=== PATIENT | male | born 1970 | race Caucasian/White ===

== ENCOUNTER 2016-11-01 20:52 | Emergency (ER) | payer OTHER ==
[~2016-11-01 20:52] MED LIST: ABILIFY5 MG PO; CARDURA4 MG PO; CARDURA8 MG PO; DOXAZOSIN MESYLA1 MG PO; FUROSEMIDE20 MG PO; HUMALOG KWI100 MG/ML SC; HUMALOG100 MG/ML; IBUPROFEN400 MG PO; IMODIUM A-D2 MG PO; KLOR-CON 1010 MEQ PO; LANTUS SOL100 UNITS/ SC; LASIX40 MG PO; LIPITOR20 MG PO; LOPERAMIDE HCL2 MG PO; NEURONTIN100 MG PO; NEURONTIN300 MG PO; OXYCODONE HCL E10 MG PO; OXYCODONE HCL10 MG PO; PERCOCET1 TA1 PO; PERCOCET1 TA2 PO
--- NOTE | 2016-11-01 22:18 | DIAGNOSTIC IMAGING REPORT ---
PROCEDURE: XR CHEST 1 VIEW INDICATION: CHEST PAIN TECHNIQUE: Portable AP view (2110 hours). COMPARISON: Compared to chest x-ray on 10/16/2015. FINDINGS: Allowing for suboptimal inspiration, there is volume loss at the lung bases. Lungs are otherwise clear. Heart and mediastinum are normal. Thorax is normal. IMPRESSION: 1. Allowing for suboptimal inspiration, there is volume loss at the lung bases. 2. Otherwise negative chest.
--- NOTE | 2016-11-02 00:13 | ED NURSING NOTES ---
Clinical Report - Nurses [facility] [address] [place] [address] 11/01/2016 20:51 Patient: PETE ROBLERO TRIAGE Acuity: LEVEL 2. Chief Complaint: CHEST PAIN. --21:08 Corinne Winters R.N. 21:00 11/01/16. BP: 144/67. HR: 84. RR: 19. O2 saturation: 98% on room air. Temp: 98.4 F. Pain level now: 06/08. --21:35 Corinne Winters R.N. Weight: 129.2 kg stated. Height/Length: 68 inches Per Patient. BMI: 43.3. --21:00 Corinne Winters R.N. Medications Albuterol Sulfate HFA Inhalation. Doxazosin Mesylate Oral (Tablet 4 mg) 1 tablet, q hs. Gabapentin Oral 1200mg, 3x a day. Ibuprofen Oral, PRN. Insulin, humanlin. Percocet Oral 10/325 mg, 3x a day. Potassium Chloride Oral 20 meq, 2x a day. --21:02 Corinne Winters R.N. ASA 81mg daily am . --21:02 Corinne Winters R.N. Atorvastating 80mg daily . --21:03 Corinne Winters R.N. Furosemide Oral 40 mg, 1-2 day prn ankle swelling. --21:03 Corinne Winters R.N. Isosorbide Mononitrate Oral 60mg daily . --21:04 Corinne Winters R.N. Imodium A-D Oral 2 mg, PRN. --21:05 Corinne Winters R.N. Metoprolol Tartrate Oral 25 mg, daily . --21:05 Corinne Winters R.N. Nitro-Bid Transdermal 0.4 PRN . Pantoprazole Sodium Oral 20 mg, daily. --21:06 Corinne Winters R.N. HumuLIN R Injection 60-80 in am, and sliding at night . Lantus Subcutaneous 100 am and HS . --21:07 Corinne Winters R.N. Allergies Imitrex. Tape. Vicodin. --21:00 Corinne Winters R.N. History Arrived by private vehicle. Historian: patient. Accompanied by family. Primary physician (alcira). Onset. (1400). He has had difficulty breathing and nausea. Reports experiencing sweating episodes. 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 SOCIAL HX: Light tobacco smoker (cigarette)- less than 1/2 a pack per day. No alcohol use or drug use. --21:08 Corinne Winters R.N. PROBLEMS: Ureterolithiasis. Hematuria. Syncope. Intervertebral Disc Disease. Neck Pain. Cholelithiasis. Abdominal Pain. Myofascial Strain. Neuropathy. Diarrhea. Diabetes Mellitus. Prostatitis. COPD - Chronic Obstructive Pulmonary Disease. --20:59 Corinne Winters R.N. ADDITIONAL SURGERIES: Back Surgery. Intestine surgery. Lt knee . Lt shoulder surgery. Rt hand. --20:59 Corinne Winters R.N. Interventions ID band on patient. To treatment room. --21:08 Corinne Winters R.N. PHYSICAL ASSESSMENT 20:50. To room via wheelchair. Patient gowned. GENERAL / NEURO / PSYCH: Alert. Oriented X 4. Appears in pain and anxious. RESPIRATORY: Chest wall tenderness. ( occasional cough). CVS: Pulses within normal limits. Capillary refill less than 2 seconds. GI / : Abdomen soft. EXTREMITIES: Lower extremity edema. 1+ pedal edema, pt states better than this am. SKIN: Skin is warm and dry. --21:11 Corinne Winters R.N. NURSING PROGRESS NOTES 20:50. Oxygen administered. Monitoring of patient in place. Patient gowned. Head of bed elevated. Reassurance given. Patient identifiers checked. Call light placed in reach. Side rails up. Bed placed in lowest position. Patient ready for evaluation- chart flagged. --21:09 Corinne Winters R.N. 20:55. ( IV attempt unsuccessful, but blood to lab). --21:10 Corinne Winters R.N. 21:10 11/01/16. Portable chest x-ray ordered, performed and shown to the ED physician. --21:10 Corinne Winters R.N. 21:14 11/01/2016 Site #1 started via IV in the right antecubital space with an 20g angiocath, with aseptic technique and good blood return; two attempts. Blood drawn: rainbow set. Labeled in the presence of the patient and sent to the lab. Saline lock flushed with saline. --21:24 Donnie Mike R.N. EKG time: (2100). EKG was ordered, performed by a tech and shown to the ED physician. --21:27 Berto Dahl, ANDRE Jamb Cutter 21:33 11/01/2016 Morphine IVP 4 mg given. via site #1. Allergies verified, confirmed 5 rights and sedative warning given to the patient and patient's family. IV patency established. IV site checked: no pain, redness, or swelling. IV flushed thoroughly pre- and post-medication administration. IVP given by RN. --21:33 Donnie Mike R.N. 21:33 11/01/2016 NITROGLYCERIN PASTE Topical 0.5 inch. Applied to the left chest. Allergies verified and confirmed 5 rights. --21:33 Donnie Mike R.N. 22:05 11/01/2016 Morphine IVP 4 mg given. via site #1. Allergies verified, confirmed 5 rights and sedative warning given to the patient and patient's family. IV patency established. IV site checked: no pain, redness, or swelling. IV flushed thoroughly pre- and post-medication administration. IVP given by RN. --22:20 Donnie Mike R.N. 23:12 11/01/2016 Morphine IVP 4 mg given. via site #1. Allergies verified, confirmed 5 rights and sedative warning given to the patient and patient's family. IV patency established. IV site checked: no pain, redness, or swelling. IV flushed thoroughly pre- and post-medication administration. IVP given by RN. --23:27 Donnie Mike R.N. Patient ID band checked for patient name and birthdate: patient confirmed. Blood samples drawn from the left hand with Vacutainer and 21g butterfly by tech per protocol ; labeled in presence of the patient and sent to lab: red and green top; cardiac enzymes (2nd set). --23:33 Berto Dahl, ER Jamb Cutter. DISPOSITION / DISCHARGE Departure time: 29. Condition at departure: improved. No learning barriers present. Discharge instructions provided and reviewed with the patient, spouse and family. Reviewed warnings. Reviewed medication(s). Treatments reviewed. Activity restrictions reviewed. Patient, spouse and family verbalized understanding. Written instructions provided in Lithuanian. The patient was discharged by the physician. He was discharged home and accompanied by spouse and family. He left the Emergency Department ambulatory and via private vehicle. Spouse driving. --00:52 Donnie Mike R.N. 00:51 11/02/16. BP: 138/69. HR: 77. RR: 16. O2 saturation: 98%. Temp: 98 F. Pain level now 10. --00:52 Donnie Mike R.N. Locked/Released at 11/02/2016 0:52 by Donnie Mike R.N.
--- NOTE | 2016-11-02 00:13 | ED ORDER SUMMARY ---
..... Patient: PETE ROBLERO OrderSheet [facility] VisitID: [id number] [place] [address] 46y, M Registration Date/Time: 11/01/2016 ORDER SHEET Weight: 129.2 kg (stated) Allergies: Imitrex, Tape, Vicodin GENERAL ORDERS: Chest 1V Urgent (21:11/01/2016 Anika Colon) (Ack 21:05 CHagerty ER Flame Burner) (21:22 Leon R.N.) Health Information Tech (Continuous) (CP) (21:11/01/2016 Anika Colon) (Ack 21:05 CHagbonnie ER Flame Burner) (21:22 Leon R.N.) CBC w Diff Urgent (21:11/01/2016 Anika Colon) (Ack 21:05 CHagbonnie ER Flame Burner) (21:22 Leon R.N.) CMP Urgent (21:11/01/2016 Anika Colon) (Ack 21:05 CHagerty ER Flame Burner) (21:22 Leon R.N.) PT with INR Urgent (21:11/01/2016 Anika Colon) (Ack 21:05 CHagerty ER Flame Burner) (21:22 Leon R.N.) UA-Culture if indicated Urgent (21:02 11/01/2016 Anika Colon) (Ack 21:05 CHagerty ER Flame Burner) (22:24 Leon R.N.) Urine Drug Screen Urgent (21:02 11/01/2016 Anika Colon) (Ack 21:05 CHagerty ER Flame Burner) (22:24 Leon R.N.) Troponin-I Urgent (21:11/01/2016 Anika Colon) (Ack 21:05 CHagerty ER Flame Burner) (21:22 Leon R.N.) EKG - ER Stat (21:11/01/2016 Anika Colon) (21:05 CHagerty ER Flame Burner) Pulse oximeter (21:11/01/2016 Anika Colon) (Ack 21:05 CHagerty ER Flame Burner) (21:22 Leon R.N.) Consult - Casino Floorperson (patient's on site wastewater systems technician or covering doctor) (22:20 11/01/2016 Anika Colon) (Ack 22:21 CHagerty ER Flame Burner) (22:45 CHagerty ER Flame Burner) Troponin-I (draw 2 hours after first trop) Urgent (22:33 11/01/2016 Anika Colon) (22:39 Leon RAlejaNAleja) Lipase Urgent (22:39 11/01/2016 Anika Colon) (22:39 Leon R.NAleja) BNP Urgent (22:39 11/01/2016 Anika Colon) (22:39 Leon Vidal) MEDICATION ORDERS: Aspirin PO 325 mg (once now if he did not have full dose) (21:02 11/01/2016 Anika Colon) (Cancelled: patient already took 21:21 Anika Colon) NitroGLYCERIN Paste Topical 0.5 in. (NOW, to CW) (21:21 11/01/2016 Anika Colon) (21:33 Leon R.NAleja) IV FLUIDS: IV Saline Lock (21:02 11/01/2016 Anika Colon) (21:24 Leon R.N.) Morphine IV 4 mg (HIGH ALERT MEDICATION, NOW) (21:21 11/01/2016 Anika Colon) (21:33 Leon R.N.) Morphine IV 4 mg (HIGH ALERT MEDICATION, NOW) (22:13 11/01/2016 Anika Colon) (22:20 Leon R.N.) Morphine IV 4 mg (as needed for pain > 5/10 Q1H) (23:06 11/01/2016 Anika Colon) (23:27 Leon R.N.) ORDER SHEET NOTES: [Electronically signed by Donnie Mike R.N. (00:52 11/02/2016)] [Electronically signed by Morales Spears Dr. (07:25 11/02/2016)] [Electronically locked/signed by Donnie Mike R.N. (00:52 11/02/2016)]
--- NOTE | 2016-11-02 00:13 | ED CLINICAL REPORT ---
Clinical Report - Physicians/Mid Levels [facility] [address] [place] [address] 11/01/2016 20:51 Patient: PETE ROBLERO Arrived- By private vehicle. Historian- patient. HISTORY OF PRESENT ILLNESS Chief Complaint: CHEST PAIN. It is described as pressure and it is described as located in the central chest area and radiating to the right shoulder. This started Past few days and is still present and worsening. It was abrupt in onset and has been constant but is not gone now. Onset during rest. At its maximum, severity described as moderate. When seen in the E.D., severity described as moderate. Modifying factors- worsened by exertion. (better with nitroglycerin.). No nausea, vomiting, difficulty breathing or diaphoresis. No additional chest pain. Similar symptoms previously: Many times. Recent medical care: Not recently seen/assessed. REVIEW OF SYSTEMS No fever, pedal edema or skin rash. All systems otherwise negative, except as recorded above. PAST HISTORY See nurses notes. Medications: HumuLIN R Injection 60-80 in am, and sliding at night . Lantus Subcutaneous 100 am and HS . Nitro-Bid Transdermal 0.4 PRN . Pantoprazole Sodium Oral 20 mg, daily. Metoprolol Tartrate Oral 25 mg, daily . Imodium A-D Oral 2 mg, PRN. Isosorbide Mononitrate Oral 60mg daily . Furosemide Oral 40 mg, 1-2 day prn ankle swelling. Atorvastating 80mg daily . ASA 81mg daily am . Albuterol Sulfate HFA Inhalation. Doxazosin Mesylate Oral (Tablet 4 mg) 1 tablet, q hs. Gabapentin Oral 1200mg, 3x a day. Ibuprofen Oral, PRN. Insulin, humanlin. Percocet Oral 10/325 mg, 3x a day. Potassium Chloride Oral 20 meq, 2x a day. Allergies: Imitrex. Tape. Vicodin. SOCIAL HISTORY Smoker- current status unknown. Alcohol use. No drug use. Is a local resident. FAMILY HISTORY History of heart disease. ADDITIONAL NOTES The nursing notes have been reviewed. PHYSICAL EXAM Vital Signs: 11/01/2016 21:00 BP: 144/67. HR: 84. RR: 19. O2 saturation: 98%. Temp: 98.4 F. Pain level now: 9/10. Blood pressure normal. Oxygen saturation normal. Appearance: Alert. Oriented X3. No acute distress. Eyes: Pupils equal, round and reactive to light. Eyes normal inspection. ENT: Ears normal. Nose normal. Pharynx normal. Neck: Normal inspection. Neck supple. CVS: Normal heart rate and rhythm. Heart sounds normal. Pulses normal. No decreased pulses. Respiratory: No respiratory distress. Breath sounds normal. Chest nontender. No rales, rhonchi or wheezes. Abdomen: Soft and nontender. Bowel sounds normal. No mass. (small well healed remote abdominal surgical scars.). Back: Normal external inspection. Skin: Skin warm and dry. Normal skin color. No rash. Normal skin turgor. Extremities: Extremities exhibit normal ROM. No lower extremity edema. Neuro: Oriented X 3. No motor deficit. No sensory deficit. LABS, X-RAYS, AND EKG EKG: No acute process. No acute ischemia. Normal EKG. Normal sinus rhythm. Rate: 88. Normal P waves. Normal ARABELLA. Normal QRS complex. Normal axis. Normal ST and T waves, QT and QTc. The study has been interpreted contemporaneously. The study has been independently viewed by me. The EKG appears to be a good tracing. Chest X-ray: No acute disease. Normal lung markings present. Normal heart size. No infiltrate. (no apical capping. No widened mediastinum. Negative chest). Views: PA. The X-rays were independently viewed by me and interpreted contemporaneously by me. A comparison with prior films reveals that the findings are unchanged. Laboratory Tests: UA-Culture if indicated: (ALBA: 11/01/2016 22:20) ( MsgRcvd 11/01/2016 22:39) Final results Test Result Flag Units (Reference) URINE COLOR YELLOW URINE APPEARANCE CLEAR URINE GLUCOSE 1+ (NEGATIVE) URINE BILIRUBIN NEGATIVE (NEGATIVE) URINE KETONE NEGATIVE (NEGATIVE) URINE SPECIFIC GRAVITY 1.025 (1.010-1.030) URINE PH 6.0 (5.0-8.0) URINE PROTEIN NEGATIVE (NEGATIVE) URINE UROBILINOGEN 0.2 EU/dL (0.2-1.0) URINE NITRITE NEGATIVE (NEGATIVE) URINE BLOOD NEGATIVE (NEGATIVE) URINE LEUK ESTERASE NEGATIVE (NEGATIVE) URINE RBC 0-1 rbc/hpf (0-1) URINE WBC 0-1 wbc/hpf (0-1) URINE EPITHELIAL CELLS 0-1 EPI/hpf (0-5) URINE BACTERIA NONE SEEN (NONE SEEN) URINE COMMENT CULT NOT INDICATED URINE CULTURES ARE SET-UP BASED ON THE FOLLOWING CRITERIA:POSITIVE NITRITEPOSITIVE LEUKOCYTE ESTERASEGREATER THAN 10 WHITE BLOOD CELLSMODERATE (2+) OR GREATER BACTERIA CBC w Diff: (ALBA: 11/01/2016 21:05) ( MsgRcvd 11/01/2016 21:42) Final results Test Result Flag Units (Reference) WHITE BLOOD COUNT 9.6 K/uL (4.5-11.5) RED BLOOD COUNT 4.16 L M/uL (4.50-5.90) HEMOGLOBIN 12.6 L gm/dL (13.5-17.5) HEMATOCRIT 36.9 L % (41.0-53.0) MEAN CELL VOLUME 89 fL (80-100) MEAN CORPUSCULAR HGB 30 pg (26-34) MEAN CORPUSCULAR HGB CONC 34 g/dL (31-37) RED CELL DISTRIBUTION WIDTH 13.3 % (11.6-14.8) PLATELET COUNT 211 K/uL (150-400) NEUTROPHIL % 61.7 % (50-75) LYMPH % 30.1 % (25-40) MONO % 5.4 % (3-14) EOSINOPHIL % 1.5 % (0-4) BASOPHIL % 1.3 % (0-2) PT with INR: (ALBA: 11/01/2016 21:05) ( MsgRcvd 11/01/2016 21:26) Final results Test Result Flag Units (Reference) INR 0.9 (0.8-1.2) Low Intensity Therapy: INR 1.5-2.0 PT range 18.5-23.1Mod.Intensity Therapy: INR 2.0-3.0 PT range 23.1-31.5High Intensity Therapy: INR 2.5-3.5 PT range 27.4-35.5High Intensity Therapy 2: INR 3.0-4.0 PT range 31.5-39.3 BNP: (ALBA: 11/01/2016 21:05) ( [facility] 11/01/2016 23:15) Final results Test Result Flag Units (Reference) B-TYPE NATRIURETIC PEPTIDE 29.6 pg/ml (5-100) Lipase: (ALBA: 11/01/2016 21:05) ( [facility] 11/01/2016 23:29) Final results Test Result Flag Units (Reference) LIPASE 46 L U/L (73-393) Troponin-I: (ALBA: 11/01/2016 23:34) ( [facility] 11/01/2016 23:59) Final results Test Result Flag Units (Reference) TROPONIN I <0.05 L ng/mL (0.00-1.5) TROPONIN REFERENCE RANGE:<0.1 NEGATIVE0.1-1.5 INDETERMINANT>1.5 POSITIVE Urine Drug Screen: (ALBA: 11/01/2016 22:20) ( [facility] 11/01/2016 22:49) Final results Test Result Flag Units (Reference) AMPHETAMINE/METHAMPHETAMINE NEGATIVE (NEGATIVE) BARBITURATE NEGATIVE (NEGATIVE) BENZODIAZEPINE NEGATIVE (NEGATIVE) CANNABINOID NEGATIVE (NEGATIVE) COCAINE NEGATIVE (NEGATIVE) ECSTASY NEGATIVE (NEGATIVE) METHADONE NEGATIVE (NEGATIVE) OPIATE POSITIVE H (NEGATIVE) The urine drug screen is a qualitative screening test fordrug overdose and abuse. All screen results should beconsidered as presumptive.Drugs screened for are as follows:BenzodiazepinesCocaineAmphetamines/MetamphetaminesTHC (Tetrahydrocannabinol)OpiatesBarbituratesEcstasyMethadonePositive results are unconfirmed. For confirmation, notifythe lab for the specimen to be sent to the reference lab.All confirmations must be performed by a differentmethodology.The ingestion of natural herbal and plant productscontaining Ephedra/Ephedra metabolites can produce in urineone or more substances capable of cross reacting withamphetamine/methamphetamine immunoassays. These testsprovide a preliminary result only. A more specificalternative chemical method must be used to obtain aconfirmed analytical result. CMP: (ALBA: 11/01/2016 21:05) ( MsgRcvd 11/01/2016 22:11) Final results Test Result Flag Units (Reference) GLUCOSE 273 H mg/dL (70-110) BUN 20 H mg/dL (7-18) CREATININE 1.1 mg/dL (0.6-1.3) Estimated GFR >60 mL/min Estimated GFR- >60 mL/min Note: Persistent reduction over 3 months in eGFR<60 mL/min/1.73 m2 defines CKD. Patients with eGFR values>=60 mL/min/1.73 m2 may also have CKD if evidence ofpersistent proteinuria. Additional information may be foundat www.kidney.org. SODIUM 142 mmol/L (136-145) POTASSIUM 3.5 mmol/L (3.5-5.1) CHLORIDE 105 mmol/L (98-107) CARBON DIOXIDE 23 mmol/L (21-32) CALCIUM 8.7 mg/dL (8.5-10.1) TOTAL PROTEIN 7.7 g/dL (6.4-8.2) ALBUMIN 3.5 g/dL (3.3-5.0) BILIRUBIN, TOTAL 0.2 mg/dL (0.0-1.0) ALKALINE PHOSPHATASE 103 U/L (46-116) AST (SGOT) 17 U/L (15-37) ALT (SGPT) 26 U/L (12-78) TROPONIN I <0.05 ng/mL (0.00-1.5) TROPONIN REFERENCE RANGE:<0.1 NEGATIVE0.1-1.5 INDETERMINANT>1.5 POSITIVE . PROGRESS AND PROCEDURES Course of Care: The patient is a 46 yo male with hx of extensive cardiac history. Records requested from [place]. Patient resting in bed in no acute distress. Work up ordered for evaluation of AMI. Patient currently PERC negative. Do not feel further work up for PE needed at this time. Patient is agreeable to treatment plan. EKGs been ordered from triage. Patient's first troponin came back and was negative. We will consult cardiology in regards to patient's presentation here in the emergency department. Because of his extensive history, we will try to contact his vehicle safety inspector. Patient is placed on for cardiology. We were able to speak the covering doctor for the patient's vehicle safety inspector. Spoke with Dr. Alejo. Spoke with Dr. Jorgensen. Patient with negative stress test August 2016 and normal cath in May 2016. Also had echo with no valvular disease or evidence of heart failure. Has appointment on 11/14/2016. Internal Affairs Investigator recommended to have a delta troponin drawn as well as a BNP. At this time if the workup is negative, patient can follow-up as an outpatient. Patient with recent studies for cardiac disease were negative.. Patient with a negative stress test and negative cardiac catheter in less than a year. With these normal studies, patient is at low risk for acute myocardial infarction. second troponin and BNP and noted to be negative. Discussed with patient workup, diagnosis, home care, follow-up, and return precautions. All questions answered. The patient expressed understanding of these instructions and was agreeable to them. Consult obtained from cardiology. Disposition: Discharged. Condition: good. CLINICAL IMPRESSION Chest pain characterized as "discomfort" .12 lead EKG performed. 11/01/2016 21:00 BP: 144/67. HR: 84. RR: 19. O2 saturation: 98%. Temp: 98.4 F. Pain level now: 9/10. Blood pressure normal. Oxygen saturation normal. INSTRUCTIONS Warnings: GENERAL WARNINGS: Return or contact your physician immediately if your condition worsens or changes unexpectedly, if not improving as expected, or if other problems arise. SPECIFICALLY, return if you develop chest, neck, jaw, shoulder, arm, or back pain, difficulty breathing, a fluttering sensation in your chest, lightheadedness, fainting, excessive fatigue, or sudden sweating. Your Current Medications: CONTINUE TAKING THE FOLLOWING MEDICATIONS: Albuterol Sulfate HFA Inhalation. ASA 81mg daily am *. Atorvastating 80mg daily *. Doxazosin Mesylate Oral : Tablet 4 mg, 1 tablet q hs. Furosemide Oral : 40 mg 1-2 day prn ankle swelling. Gabapentin Oral : 1200mg 3x a day. HumuLIN R Injection : 60-80 in am, and sliding at night. Ibuprofen Oral : PRN. Imodium A-D Oral : 2 mg PRN. Insulin, humanlin*. Isosorbide Mononitrate Oral : 60mg daily. Lantus Subcutaneous : 100 am and HS. Metoprolol Tartrate Oral : 25 mg daily. Nitro-Bid Transdermal : 0.4 PRN. Pantoprazole Sodium Oral : 20 mg daily. Percocet Oral : 10/325 mg 3x a day. Potassium Chloride Oral : 20 meq 2x a day. Prescription Medications: Nitrostat 0.4 mg: dissolve 1 tab under tongue every 15 minutes as needed for chest pain. Dispense one (1) bottle. No refills. Substitution is permissible. (Take as previously directed) Follow-up: Return to the emergency department as needed. Follow up with a specialist your vehicle safety inspector as scheduled. Reason for referral: recheck today's concerns. you have an appointment on 11/14/2016. Summary of care provided to patient and family via paper. Follow up with your doctor in three days. Reason for referral: recheck today's concerns. Summary of care provided to patient and family via paper. Screening today revealed the patient's blood pressure to be in the normal range. The patient should follow up with a primary care provider for blood pressure management. Understanding of the discharge instructions verbalized by patient. (Electronically signed by Morales Spears Dr. 11/02/2016 7:25)
--- NOTE | 2016-11-02 00:13 | ED ORDER SUMMARY ---
..... Patient: PETE ROBLERO OrderSheet [facility] VisitID: [id number] [place] [address] 46y, M Registration Date/Time: 11/01/2016 ORDER SHEET Weight: 129.2 kg (stated) Allergies: Imitrex, Tape, Vicodin GENERAL ORDERS: Chest 1V Urgent (21:11/01/2016 Anika Colon) (Ack 21:05 CHagerty ER Diaper Folder) (21:22 Leon R.N.) Utilization Manager (Continuous) (CP) (21:11/01/2016 Anika Colon) (Ack 21:05 CHagbonnie ER Diaper Folder) (21:22 Leon R.N.) CBC w Diff Urgent (21:11/01/2016 Anika Colon) (Ack 21:05 CHagbonnie ER Diaper Folder) (21:22 Leon R.N.) CMP Urgent (21:11/01/2016 Anika Colon) (Ack 21:05 CHagerty ER Diaper Folder) (21:22 Leon R.N.) PT with INR Urgent (21:11/01/2016 Anika Colon) (Ack 21:05 CHagerty ER Diaper Folder) (21:22 Leon R.N.) UA-Culture if indicated Urgent (21:02 11/01/2016 Anika Colon) (Ack 21:05 CHagerty ER Diaper Folder) (22:24 Leon R.N.) Urine Drug Screen Urgent (21:02 11/01/2016 Anika Colon) (Ack 21:05 CHagerty ER Diaper Folder) (22:24 Leon R.N.) Troponin-I Urgent (21:11/01/2016 Anika Colon) (Ack 21:05 CHagerty ER Diaper Folder) (21:22 Leon R.N.) EKG - ER Stat (21:11/01/2016 Anika Colon) (21:05 CHagerty ER Diaper Folder) Pulse oximeter (21:11/01/2016 Anika Colon) (Ack 21:05 CHagerty ER Diaper Folder) (21:22 Leon R.N.) Consult - Media Planner / Buyer (patient's mammographer or covering doctor) (22:20 11/01/2016 Anika Colon) (Ack 22:21 CHagerty ER Diaper Folder) (22:45 CHagerty ER Diaper Folder) Troponin-I (draw 2 hours after first trop) Urgent (22:33 11/01/2016 Anika Colon) (22:39 Leon RAlejaNAleja) Lipase Urgent (22:39 11/01/2016 Anika Colon) (22:39 Leon R.NAleja) BNP Urgent (22:39 11/01/2016 Anika Colon) (22:39 Leon Vidal) MEDICATION ORDERS: Aspirin PO 325 mg (once now if he did not have full dose) (21:02 11/01/2016 Anika Colon) (Cancelled: patient already took 21:21 Anika Colon) NitroGLYCERIN Paste Topical 0.5 in. (NOW, to CW) (21:21 11/01/2016 Anika Colon) (21:33 Leon R.NAleja) IV FLUIDS: IV Saline Lock (21:02 11/01/2016 Anika Colon) (21:24 Leon R.N.) Morphine IV 4 mg (HIGH ALERT MEDICATION, NOW) (21:21 11/01/2016 Anika Colon) (21:33 Leon R.N.) Morphine IV 4 mg (HIGH ALERT MEDICATION, NOW) (22:13 11/01/2016 Anika Colon) (22:20 Leon R.N.) Morphine IV 4 mg (as needed for pain > 5/10 Q1H) (23:06 11/01/2016 Anika Colon) (23:27 Leon R.N.) ORDER SHEET NOTES: [Electronically signed by Donnie Mike R.N. (00:52 11/02/2016)] [Electronically signed by Morales Spears Dr. (07:25 11/02/2016)] [Electronically locked/signed by Donnie Mike R.N. (00:52 11/02/2016)]
--- NOTE | 2016-11-02 07:25 | ED DISCHARGE INSTRUCTIONS ---
Patient: PETE ROBLERO General Instructions [facility] VisitID: [id number] [place] [address] 46y, M Registration Date/Time: 11/01/2016 Chest pain characterized as "discomfort" .12 lead EKG performed. 11/01/2016 21:00 BP: 144/67. HR: 84. RR: 19. O2 saturation: 98%. Temp: 98.4 F. Pain level now: 06/08. Blood pressure normal. Oxygen saturation normal. INSTRUCTIONS Warnings: GENERAL WARNINGS: Return or contact your physician immediately if your condition worsens or changes unexpectedly, if not improving as expected, or if other problems arise. SPECIFICALLY, return if you develop chest, neck, jaw, shoulder, arm, or back pain, difficulty breathing, a fluttering sensation in your chest, lightheadedness, fainting, excessive fatigue, or sudden sweating. Your Current Medications: CONTINUE TAKING THE FOLLOWING MEDICATIONS: Albuterol Sulfate HFA Inhalation. ASA 81mg daily am *. Atorvastating 80mg daily *. Doxazosin Mesylate Oral : Tablet 4 mg, 1 tablet q hs. Furosemide Oral : 40 mg 1-2 day prn ankle swelling. Gabapentin Oral : 1200mg 3x a day. HumuLIN R Injection : 60-80 in am, and sliding at night. Ibuprofen Oral : PRN. Imodium A-D Oral : 2 mg PRN. Insulin, humanlin*. Isosorbide Mononitrate Oral : 60mg daily. Lantus Subcutaneous : 100 am and HS. Metoprolol Tartrate Oral : 25 mg daily. Nitro-Bid Transdermal : 0.4 PRN. Pantoprazole Sodium Oral : 20 mg daily. Percocet Oral : 10/325 mg 3x a day. Potassium Chloride Oral : 20 meq 2x a day. Prescription Medications: Nitrostat 0.4 mg: dissolve 1 tab under tongue every 15 minutes as needed for chest pain. Dispense one (1) bottle. No refills. Substitution is permissible. (Take as previously directed) Follow-up: Return to the emergency department as needed. 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 Reason for referral: recheck today's concerns. you have an appointment on 11/14/2016. Summary of care provided to patient and family via paper. Follow up with your doctor in three days. Reason for referral: recheck today's concerns. Summary of care provided to patient and family via paper. Screening today revealed the patient's blood pressure to be in the normal range. The patient should follow up with a primary care provider for blood pressure management. Understanding of the discharge instructions verbalized by patient. ADDITIONAL INFORMATION Chest Pain, Uncertain Cause Chest pain can happen for a number of reasons. Sometimes the cause can not be determined. If yourcondition does not seem serious, and your pain does not appear to be coming from your heart, your doctor may recommend watching it closely. Sometimes the signs of a serious problem take more time to appear. Therefore, watch for the warning signs listed below. Home care After your visit, follow these recommendations: Rest today and avoid strenuous activity. Take any prescribed medicine as directed. Follow-up care Follow up with your doctor or this facility as instructed or if you do not start to feel better within 24 hours. Call 911 Get immediate medical attention if any of the following occur: A change in the type of pain: if it feels different, becomes more severe, lasts longer, or begins to spread into your shoulder, arm, neck, jaw or back Shortness of breath or increased pain with breathing Weakness, dizziness, or fainting Rapid heart beat Get prompt medical attention Call your doctor right away if any of the following occur: Cough with dark colored sputum (phlegm) or blood Fever of 100.4F(38C) or higher, or as directed by your health care provider Swelling, pain or redness in one leg Nitroglycerin Sublingual/Translingual spray What is this medicine? NITROGLYCERIN (shayne troe GLI ser in) is a type of vasodilator. It relaxes blood vessels, increasing the blood and oxygen supply to your heart. This medicine is used to prevent or relieve chest pain caused by angina. How should I use this medicine? This medicine is only for use in the mouth. Use at the first sign of an attack. You can also use this medicine 5 to 10 minutes before an event likely to produce chest pain. Follow the directions on the prescription label. Do not shake the container. Remove the plastic cover. Before using this medicine for the first time, you must prime the bottle by spraying the pump 5 times into the air away from yourself. If this medicine has not been used for 6 weeks, you must reprime the bottle by spraying once into the air away from yourself. Hold the container upright and spray either onto or underneath the tongue. Do not breathe in the spray. After each spray, close your mouth but do not swallow or rinse. Your symptoms should improve in 1 to 5 minutes. You can repeat the dose every 5 minutes for up to three doses. If you do not feel better after 1 dose, contact your doctor or health residential care facility manager immediately or have someone take you straight to an emergency room. Do not take your medicine more often than directed. If you take this medicine often to relieve symptoms of angina, your doctor or health residential care facility manager may provide you with different instructions to manage your symptoms. If symptoms do not go away after following these instructions, it is important to call 9-1-1 immediately. Do not take more than 3 doses over 15 minutes. Talk to your improvement intern regarding the use of this medicine in children. Special care may be needed. What side effects may I notice from receiving this medicine? Side effects that you should report to your doctor or health residential care facility manager as soon as possible: blurred vision dry mouth skin rash sweating the feeling of extreme pressure in the head unusually weak or tired Side effects that usually do not require medical attention (report to your doctor or health residential care facility manager if they continue or are bothersome): flushing of the face or neck headache irregular heartbeat, palpitations nausea, vomiting What may interact with this medicine? Do not take this medicine with any of the following medications: certain migraine medicines like ergotamine and dihydroergotamine (DHE) medicines used to treat erectile dysfunction like sildenafil, tadalafil, and vardenafil This medicine may also interact with the following medications: medicines for high blood pressure What if I miss a dose? This does not apply. This medicine is only used as needed. Where should I keep my medicine? Keep out of the reach of children. Store at room temperature between 15 and 30 degrees C (59 and 86 degrees F). Do not spray near flames. Do not forcefully open or burn the container. Throw away any unused medicine after the expiration date. What should I tell my health care provider before I take this medicine? They need to know if you have any of these conditions: liver disease recent heart attack an unusual or allergic reaction to nitroglycerin, other medicines, foods, dyes, or preservatives or trying to get breast-feeding What should I watch for while using this medicine? Tell your doctor or health residential care facility manager if you feel your medicine is no longer working. Keep this medicine with you at all times. Sit or lie down when you take your medicine to prevent falling if you feel dizzy or faint after using it. Try to remain calm. This will help you to feel better faster. If you feel dizzy, take several deep breaths and lie down with your feet propped up, or bend forward with your head resting between your knees. You may get drowsy or dizzy. Do not drive, use machinery, or do anything that needs mental alertness until you know how this drug affects you. Do not stand or sit up quickly, especially if you are an older patient. This reduces the risk of dizzy or fainting spells. Alcohol can make you more drowsy and dizzy. Avoid alcoholic drinks. Do not treat yourself for coughs, colds, or pain while you are taking this medicine without asking your doctor or health residential care facility manager for advice. Some ingredients may increase your blood pressure. You have been given the following additional information: Chest Pain, Uncertain Cause Nitroglycerin Sublingual/Translingual spray (Electronically signed by Morales Spears Dr. 11/02/2016 7:25)
--- NOTE | 2016-11-02 07:25 | ED DISCHARGE INSTRUCTIONS ---
Patient: PETE ROBLERO General Instructions [facility] VisitID: [id number] [place] [address] 46y, M Registration Date/Time: 11/01/2016 Chest pain characterized as "discomfort" .12 lead EKG performed. 11/01/2016 21:00 BP: 144/67. HR: 84. RR: 19. O2 saturation: 98%. Temp: 98.4 F. Pain level now: 06/08. Blood pressure normal. Oxygen saturation normal. INSTRUCTIONS Warnings: GENERAL WARNINGS: Return or contact your physician immediately if your condition worsens or changes unexpectedly, if not improving as expected, or if other problems arise. SPECIFICALLY, return if you develop chest, neck, jaw, shoulder, arm, or back pain, difficulty breathing, a fluttering sensation in your chest, lightheadedness, fainting, excessive fatigue, or sudden sweating. Your Current Medications: CONTINUE TAKING THE FOLLOWING MEDICATIONS: Albuterol Sulfate HFA Inhalation. ASA 81mg daily am *. Atorvastating 80mg daily *. Doxazosin Mesylate Oral : Tablet 4 mg, 1 tablet q hs. Furosemide Oral : 40 mg 1-2 day prn ankle swelling. Gabapentin Oral : 1200mg 3x a day. HumuLIN R Injection : 60-80 in am, and sliding at night. Ibuprofen Oral : PRN. Imodium A-D Oral : 2 mg PRN. Insulin, humanlin*. Isosorbide Mononitrate Oral : 60mg daily. Lantus Subcutaneous : 100 am and HS. Metoprolol Tartrate Oral : 25 mg daily. Nitro-Bid Transdermal : 0.4 PRN. Pantoprazole Sodium Oral : 20 mg daily. Percocet Oral : 10/325 mg 3x a day. Potassium Chloride Oral : 20 meq 2x a day. Prescription Medications: Nitrostat 0.4 mg: dissolve 1 tab under tongue every 15 minutes as needed for chest pain. Dispense one (1) bottle. No refills. Substitution is permissible. (Take as previously directed) Follow-up: Return to the emergency department as needed. 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 Reason for referral: recheck today's concerns. you have an appointment on 11/14/2016. Summary of care provided to patient and family via paper. Follow up with your doctor in three days. Reason for referral: recheck today's concerns. Summary of care provided to patient and family via paper. Screening today revealed the patient's blood pressure to be in the normal range. The patient should follow up with a primary care provider for blood pressure management. Understanding of the discharge instructions verbalized by patient. ADDITIONAL INFORMATION Chest Pain, Uncertain Cause Chest pain can happen for a number of reasons. Sometimes the cause can not be determined. If yourcondition does not seem serious, and your pain does not appear to be coming from your heart, your doctor may recommend watching it closely. Sometimes the signs of a serious problem take more time to appear. Therefore, watch for the warning signs listed below. Home care After your visit, follow these recommendations: Rest today and avoid strenuous activity. Take any prescribed medicine as directed. Follow-up care Follow up with your doctor or this facility as instructed or if you do not start to feel better within 24 hours. Call 911 Get immediate medical attention if any of the following occur: A change in the type of pain: if it feels different, becomes more severe, lasts longer, or begins to spread into your shoulder, arm, neck, jaw or back Shortness of breath or increased pain with breathing Weakness, dizziness, or fainting Rapid heart beat Get prompt medical attention Call your doctor right away if any of the following occur: Cough with dark colored sputum (phlegm) or blood Fever of 100.4F(38C) or higher, or as directed by your health care provider Swelling, pain or redness in one leg Nitroglycerin Sublingual/Translingual spray What is this medicine? NITROGLYCERIN (shayne troe GLI ser in) is a type of vasodilator. It relaxes blood vessels, increasing the blood and oxygen supply to your heart. This medicine is used to prevent or relieve chest pain caused by angina. How should I use this medicine? This medicine is only for use in the mouth. Use at the first sign of an attack. You can also use this medicine 5 to 10 minutes before an event likely to produce chest pain. Follow the directions on the prescription label. Do not shake the container. Remove the plastic cover. Before using this medicine for the first time, you must prime the bottle by spraying the pump 5 times into the air away from yourself. If this medicine has not been used for 6 weeks, you must reprime the bottle by spraying once into the air away from yourself. Hold the container upright and spray either onto or underneath the tongue. Do not breathe in the spray. After each spray, close your mouth but do not swallow or rinse. Your symptoms should improve in 1 to 5 minutes. You can repeat the dose every 5 minutes for up to three doses. If you do not feel better after 1 dose, contact your doctor or health critical care rn immediately or have someone take you straight to an emergency room. Do not take your medicine more often than directed. If you take this medicine often to relieve symptoms of angina, your doctor or health critical care rn may provide you with different instructions to manage your symptoms. If symptoms do not go away after following these instructions, it is important to call 9-1-1 immediately. Do not take more than 3 doses over 15 minutes. Talk to your furniture mover helper regarding the use of this medicine in children. Special care may be needed. What side effects may I notice from receiving this medicine? Side effects that you should report to your doctor or health critical care rn as soon as possible: blurred vision dry mouth skin rash sweating the feeling of extreme pressure in the head unusually weak or tired Side effects that usually do not require medical attention (report to your doctor or health critical care rn if they continue or are bothersome): flushing of the face or neck headache irregular heartbeat, palpitations nausea, vomiting What may interact with this medicine? Do not take this medicine with any of the following medications: certain migraine medicines like ergotamine and dihydroergotamine (DHE) medicines used to treat erectile dysfunction like sildenafil, tadalafil, and vardenafil This medicine may also interact with the following medications: medicines for high blood pressure What if I miss a dose? This does not apply. This medicine is only used as needed. Where should I keep my medicine? Keep out of the reach of children. Store at room temperature between 15 and 30 degrees C (59 and 86 degrees F). Do not spray near flames. Do not forcefully open or burn the container. Throw away any unused medicine after the expiration date. What should I tell my health care provider before I take this medicine? They need to know if you have any of these conditions: liver disease recent heart attack an unusual or allergic reaction to nitroglycerin, other medicines, foods, dyes, or preservatives or trying to get breast-feeding What should I watch for while using this medicine? Tell your doctor or health critical care rn if you feel your medicine is no longer working. Keep this medicine with you at all times. Sit or lie down when you take your medicine to prevent falling if you feel dizzy or faint after using it. Try to remain calm. This will help you to feel better faster. If you feel dizzy, take several deep breaths and lie down with your feet propped up, or bend forward with your head resting between your knees. You may get drowsy or dizzy. Do not drive, use machinery, or do anything that needs mental alertness until you know how this drug affects you. Do not stand or sit up quickly, especially if you are an older patient. This reduces the risk of dizzy or fainting spells. Alcohol can make you more drowsy and dizzy. Avoid alcoholic drinks. Do not treat yourself for coughs, colds, or pain while you are taking this medicine without asking your doctor or health critical care rn for advice. Some ingredients may increase your blood pressure. You have been given the following additional information: Chest Pain, Uncertain Cause Nitroglycerin Sublingual/Translingual spray (Electronically signed by Morales Spears Dr. 11/02/2016 7:25)
--- NOTE | 2016-11-02 07:25 | ED MAR SUMMARY ---
..... Medication Administration Record [facility] [address] [place] [place] [address] Patient: PETE ROBLERO Visit ID: [id number] 46y, M Weight: 129.2 kg Height/Length: 68 in BMI: 43.3 ALLERGIES: Imitrex, Tape, Vicodin Given :11/01/2016 Donnie Mike R.N. Medication Administered: NITROGLYCERIN PASTE [TOPICAL], Dose: 0.5 in. Topical. Medication Ordered: NitroGLYCERIN Paste Topical 0.5 in. (NOW, to CW). Given :11/01/2016 Donnie Mike R.N. Medication Administered: MORPHINE [IVP], Dose: 4 mg IVP, Site: #1 right AC. Medication Ordered: Morphine IV 4 mg (HIGH ALERT MEDICATION, NOW). Given 22:05 11/01/2016 Donnie Mike R.N. Medication Administered: MORPHINE [IVP], Dose: 4 mg IVP, Site: #1 right AC. Medication Ordered: Morphine IV 4 mg (HIGH ALERT MEDICATION, NOW). Given 23:12 11/01/2016 Donnie Mike R.N. Medication Administered: MORPHINE [IVP], Dose: 4 mg IVP, Site: #1 right AC. Medication Ordered: Morphine IV 4 mg (as needed for pain > 5/10 Q1H).
--- NOTE | 2016-11-02 07:25 | ED MED RECONCILIATION SUMMARY ---
Patient: PETE ROBLERO Medication Reconciliation Report [facility] VisitID: [id number] [address] [place] [address] 46y, M Registration Date/Time: 11/01/2016 Weight: 129.2 kg Height/Length: 68 in. BMI: 43.3 ALLERGIES: Imitrex, Tape, Vicodin The patient's Home Medications are listed below: CONTINUE TAKING THE FOLLOWING MEDICATIONS: Albuterol Sulfate HFA Inhalation ASA 81mg daily am Atorvastating 80mg daily Doxazosin Mesylate Oral (4 mg) 1 tablet, q hs Furosemide Oral 40 mg, 1-2 day prn ankle swelling Gabapentin Oral 1200mg, 3x a day HumuLIN R Injection 60-80 in am, and sliding at night Ibuprofen Oral, PRN Imodium A-D Oral 2 mg, PRN Insulin, humanlin Isosorbide Mononitrate Oral 60mg daily Lantus Subcutaneous 100 am and HS Metoprolol Tartrate Oral 25 mg, daily Nitro-Bid Transdermal 0.4 PRN Pantoprazole Sodium Oral 20 mg, daily Percocet Oral 10/325 mg, 3x a day Potassium Chloride Oral 20 meq, 2x a day The source(s) of the original Home Medication information: Not obtained. The following Medications were given to the patient in the Emergency Department: Morphine [IVP] IVP 4 mg, administered: 11/01/2016 9:33:00 PM NITROGLYCERIN PASTE [TOPICAL] Topical 0.5 in., administered: 11/01/2016 9:33:00 PM Morphine [IVP] IVP 4 mg, administered: 11/01/2016 10:05:00 PM Morphine [IVP] IVP 4 mg, administered: 11/01/2016 11:12:00 PM The following Medications were prescribed to the patient: Nitrostat 0.4 mg: dissolve 1 tab under tongue every 15 minutes as needed for chest pain. Dispense one (1) bottle. No refills. Substitution is permissible.(Take as previously directed) -- Morales Spears Dr.
--- NOTE | 2016-11-02 07:25 | ED MAR SUMMARY ---
..... Medication Administration Record [facility] [address] [place] [address] Patient: PETE ROBLERO Visit ID: [id number] 46y, M Weight: 129.2 kg Height/Length: 68 in BMI: 43.3 ALLERGIES: Imitrex, Tape, Vicodin Given :11/01/2016 Donnie Mike R.N. Medication Administered: NITROGLYCERIN PASTE [TOPICAL], Dose: 0.5 in. Topical. Medication Ordered: NitroGLYCERIN Paste Topical 0.5 in. (NOW, to CW). Given :11/01/2016 Donnie Mike R.N. Medication Administered: MORPHINE [IVP], Dose: 4 mg IVP, Site: #1 right AC. Medication Ordered: Morphine IV 4 mg (HIGH ALERT MEDICATION, NOW). Given 22:05 11/01/2016 Donnie Mike R.N. Medication Administered: MORPHINE [IVP], Dose: 4 mg IVP, Site: #1 right AC. Medication Ordered: Morphine IV 4 mg (HIGH ALERT MEDICATION, NOW). Given 23:12 11/01/2016 Donnie Mike R.N. Medication Administered: MORPHINE [IVP], Dose: 4 mg IVP, Site: #1 right AC. Medication Ordered: Morphine IV 4 mg (as needed for pain > 5/10 Q1H).
--- NOTE | 2016-11-02 07:25 | ED MED RECONCILIATION SUMMARY ---
Patient: PETE ROBLERO Medication Reconciliation Report [facility] VisitID: [id number] [address] [place] [address] 46y, M Registration Date/Time: 11/01/2016 Weight: 129.2 kg Height/Length: 68 in. BMI: 43.3 ALLERGIES: Imitrex, Tape, Vicodin The patient's Home Medications are listed below: CONTINUE TAKING THE FOLLOWING MEDICATIONS: Albuterol Sulfate HFA Inhalation ASA 81mg daily am Atorvastating 80mg daily Doxazosin Mesylate Oral (4 mg) 1 tablet, q hs Furosemide Oral 40 mg, 1-2 day prn ankle swelling Gabapentin Oral 1200mg, 3x a day HumuLIN R Injection 60-80 in am, and sliding at night Ibuprofen Oral, PRN Imodium A-D Oral 2 mg, PRN Insulin, humanlin Isosorbide Mononitrate Oral 60mg daily Lantus Subcutaneous 100 am and HS Metoprolol Tartrate Oral 25 mg, daily Nitro-Bid Transdermal 0.4 PRN Pantoprazole Sodium Oral 20 mg, daily Percocet Oral 10/325 mg, 3x a day Potassium Chloride Oral 20 meq, 2x a day The source(s) of the original Home Medication information: Not obtained. The following Medications were given to the patient in the Emergency Department: Morphine [IVP] IVP 4 mg, administered: 11/01/2016 9:33:00 PM NITROGLYCERIN PASTE [TOPICAL] Topical 0.5 in., administered: 11/01/2016 9:33:00 PM Morphine [IVP] IVP 4 mg, administered: 11/01/2016 10:05:00 PM Morphine [IVP] IVP 4 mg, administered: 11/01/2016 11:12:00 PM The following Medications were prescribed to the patient: Nitrostat 0.4 mg: dissolve 1 tab under tongue every 15 minutes as needed for chest pain. Dispense one (1) bottle. No refills. Substitution is permissible.(Take as previously directed) -- Morales Spears Dr.
== END 2016-11-02 00:33 | disposition home or self-care (01) ==
LOC: ED SRH 20:52
DX: R07.89 Other chest pain (principal); E11.40 Type 2 diabetes mellitus with diabetic neuropathy, unspecified; Z79.4 Long term (current) use of insulin; J44.9 Chronic obstructive pulmonary disease, unspecified; F17.210 Nicotine dependence, cigarettes, uncomplicated; Z88.5 Allergy status to narcotic agent; Z88.8 Allergy status to other drugs, medicaments and biological substances
CPT/HCPCS: 90004; 90074; 90100; 90616; 91320; 92235; 92760; 92761; 92762; 92763; 92764; 92765; 92766; 92767; 94060; 95059

== ENCOUNTER 2016-11-22 14:29 | Emergency (ER) | payer OTHER ==
--- NOTE | 2016-11-22 15:35 | ED ORDER SUMMARY ---
..... Patient: PETE ROBLERO OrderSheet [facility] VisitID: [id number] [address] [place] [address] 46y, M Registration Date/Time: 11/22/2016 ORDER SHEET Weight: 129.2 kg (stated) Allergies: Imitrex, Tape, Vicodin, Dilaudid GENERAL ORDERS: MEDICATION ORDERS: Toradol IM 60 mg (NOW) (15:21 11/22/2016 HBivens A.R.N.P.) (Ack 15:22 DMaziarka R.N.) (15:27 DMaziarka R.N.) IV FLUIDS: ORDER SHEET NOTES: [Electronically signed by Rasheed Macias R.N. (15:50 11/22/2016)] [Electronically signed by Bianca [email or web address] (16:07 11/22/2016)] [Electronically locked/signed by Rasheed Macias R.N. (15:50 11/22/2016)]
--- NOTE | 2016-11-22 15:35 | ED ORDER SUMMARY ---
..... Patient: PETE ROBLERO OrderSheet [facility] VisitID: [id number] [address] [place] [address] 46y, M Registration Date/Time: 11/22/2016 ORDER SHEET Weight: 129.2 kg (stated) Allergies: Imitrex, Tape, Vicodin, Dilaudid GENERAL ORDERS: MEDICATION ORDERS: Toradol IM 60 mg (NOW) (15:21 11/22/2016 HBivens A.R.N.P.) (Ack 15:22 DMaziarka R.N.) (15:27 DMaziarka R.N.) IV FLUIDS: ORDER SHEET NOTES: [Electronically signed by Rasheed Macias R.N. (15:50 11/22/2016)] [Electronically signed by Bianca KramerRAlejaN.PAleja (16:07 11/22/2016)] [Electronically locked/signed by Rasheed Macias R.N. (15:50 11/22/2016)]
--- NOTE | 2016-11-22 15:35 | ED CLINICAL REPORT ---
Clinical Report - Physicians/Mid Levels [facility] [address] [place] [address] 11/22/2016 14:30 Patient: PETE ROBLERO Time Seen: 15:12; initial patient contact, initial documentation, patient care assumed. Arrived- By private vehicle. Historian- patient. HISTORY OF PRESENT ILLNESS Chief Complaint: BACK PAIN and CHRONIC BACK PAIN. It is described as being severe and in the area of the lower thoracic spine, left upper lumbar spine, upper lumbar spine and right upper lumbar spine. The quality is noted to be "pain" and similar to prior episodes. No radiation. Modifying factors. Not worsened by anything. Not relieved by anything. Onset- years ago and it is still present. Bladder dysfunction (x1 episode the other day). The bladder dysfunction is described as incontinence. No bowel dysfunction. Mild sensory loss involving the right foot and left foot (feels numb). Motor loss involving the right foot and left foot (states he feels like he is dragging his feet). Patient notes the possibility of a recent injury. Mechanism of injury- he was bending (working on car, felt a pop). Occurred at home. Patient denies injury to the head or neck. Similar symptoms previously: Chronically. Recent medical care: The patient was seen recently in the office. ( saw his pcp the other day, but nothing really addressed re his back, because his chest was also hurting so the visit was focused on that). REVIEW OF SYSTEMS No difficulty with urination, urinary frequency, hematuria, difficulty breathing or chest pain. No abdominal pain. All systems otherwise negative, except as recorded above. PAST HISTORY See nurses notes. PROBLEMS: Chest Pain. Ureterolithiasis. Hematuria. Syncope. Intervertebral Disc Disease. Neck Pain. Cholelithiasis. Abdominal Pain. Myofascial Strain. Neuropathy. Back Pain. Diarrhea. Diabetes Mellitus. Prostatitis. COPD - Chronic Obstructive Pulmonary Disease. --14:49 Becky Johnson R.N. ADDITIONAL SURGERIES: Back Surgery. Intestine surgery. Lt knee . Lt shoulder surgery. Rt hand. --14:49 Maziarka, Becky, R.N. SOCIAL HISTORY Heavy tobacco smoker. No alcohol use or drug use. No recent travel. Is a local resident. FAMILY HISTORY Negative. ADDITIONAL NOTES The nursing notes have been reviewed with agreement regarding the chief complaint, HPI, ROS, PMH and patient medications and allergies. PHYSICAL EXAM Vital Signs: 11/22/2016 14:51 BP: 111/69. HR: 95. RR: 22. O2 saturation: 98%. Temp: 98.5 F. Have been reviewed as normal and appear to be correct. Appearance: Alert. No acute distress. Neck: Normal inspection. Neck nontender. Painless ROM. CVS: Heart sounds normal. Pulses normal. Respiratory: No respiratory distress. Breath sounds normal. Abdomen: No visible injury. Soft and nontender. Moderately obese. Back: Abnormal inspection. Back tenderness present. Mild vertebral point tenderness over the lower thoracic and upper lumbar spine. Soft tissue tenderness in the right lower, left lower and lower central thoracic area and right upper, left upper and upper central lumbar area. No painless ROM. Limited ROM in the back- in the lumbar spine: decreased flexion, right lateral bending, left lateral bending and rotation to the right and left. No muscle spasm in the back or CVA tenderness. Skin: Skin warm and dry. Normal skin color. No rash. Normal skin turgor. Extremities: Extremities exhibit normal ROM. Extremities nontender. Neuro: Oriented X 3. Mood/affect normal. No motor deficit. No sensory deficit. PROGRESS AND PROCEDURES Patient counseled in person regarding the patient's stable condition and diagnosis. 15:35. Differential Diagnosis: Above considerations are based on history and physical exam. Differential diagnosis was discussed with patient. Disposition: Discharged home in good and improved condition (15:35). Condition: good and stable. CLINICAL IMPRESSION Chronic nontraumatic thoracic and lumbar back pain. Lumbar radiculopathy present. No sciatica or neurological deficit. INSTRUCTIONS Warnings: GENERAL WARNINGS: Return or contact your physician immediately if your condition worsens or changes unexpectedly, if not improving as expected, or if other problems arise. SPECIFICALLY, return if you develop weakness of the foot or leg, numbness or incontinence of feces (loss of bowel control) or urine (loss of bladder control). worsening. Prescription Medications: Toradol 10 mg tablets: Take 1 tablet orally every 6 hours as needed. Dispense fifteen (15). No refills. Substitution is permissible. Medrol Dosepak: take according to package directions. Dispense one (1) dosepak. No refills. Substitution is permissible. Follow-up: Follow up with your doctor in about three days even if well. Call for an appointment. Summary of care provided to patient. Understanding of the discharge instructions verbalized by patient. (Electronically signed by Bianca Kramer A.R.N.P. 11/22/2016 16:07)
--- NOTE | 2016-11-22 15:35 | ED NURSING NOTES ---
Clinical Report - Nurses [facility] [address] [place] [address] 11/22/2016 14:30 Patient: PETE ROBLERO TRIAGE Triage time 14:46. Acuity: LEVEL 4. Chief Complaint: BACK PAIN and NUMBNESS and WEAKNESS ([place] a pop and now has back pain and going to his legs and having minimal urination and diff with stooling). --14:50 Becky Johnson R.N. Alert. --14:51 Becky Johnson R.N. 14:51 11/22/16. BP: 111/69. HR: 95. RR: 22. O2 saturation: 98%. Temp: 98.5 F. Pain level now 8/10. --14:51 Becky Johnson R.N. Weight: 129.2 kg stated. Height/Length: 68 inches Per Patient. BMI: 43.3. --14:50 Becky Johnson R.N. Medications Albuterol Sulfate HFA Inhalation. ASA 81mg daily am . Atorvastating 80mg daily . Doxazosin Mesylate Oral (Tablet 4 mg) 1 tablet, q hs. Furosemide Oral 40 mg, 1-2 day prn ankle swelling. Gabapentin Oral 1200mg, 3x a day. HumuLIN R Injection 60-80 in am, and sliding at night . Ibuprofen Oral, PRN. Imodium A-D Oral 2 mg, PRN. Insulin, humanlin. Isosorbide Mononitrate Oral 60mg daily . Lantus Subcutaneous 100 am and HS . Metoprolol Tartrate Oral 25 mg, daily . --14:48 Becky Johnson R.N. Nitro-Bid Transdermal 0.4 PRN . Pantoprazole Sodium Oral 20 mg, daily. Percocet Oral 10/325 mg, 3x a day. Potassium Chloride Oral 20 meq, 2x a day. --14:48 Becky Johnson R.N. Allergies Imitrex. Tape. Vicodin. --14:48 Becky Johnson R.N. Dilaudid. --14:49 Becky Johnson R.N. History Arrived by private vehicle. Historian: family. Accompanied by family. Primary physician (Olesya). The patient has had numbness, weakness, tingling, and trouble walking. History of recent trauma- (working on his car and felt a POP). 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 PAST MEDICAL HX: Diabetes mellitus. SOCIAL HX: Current every day heavy tobacco smoker (cigarette)- less than 1 pack per day. No alcohol use or drug use. --14:50 Becky Johnson R.N. PROBLEMS: Chest Pain. Ureterolithiasis. Hematuria. Syncope. Intervertebral Disc Disease. Neck Pain. Cholelithiasis. Abdominal Pain. Myofascial Strain. Neuropathy. Back Pain. Diarrhea. Diabetes Mellitus. Prostatitis. COPD - Chronic Obstructive Pulmonary Disease. --14:49 Becky Johnson R.N. ADDITIONAL SURGERIES: Back Surgery. Intestine surgery. Lt knee . Lt shoulder surgery. Rt hand. --14:49 Becky Johnson R.N. PHYSICAL ASSESSMENT GENERAL / NEURO / PSYCH: Alert. Oriented X 4. Appears in pain and in distress. BACK: Limited ROM of the back. Vertebral point tenderness. --14:52 Becky Johnson R.N. NURSING PROGRESS NOTES Patient identifiers checked. Call light placed in reach. Patient ready for evaluation- ED physician notified. --14:52 Becky Johnson R.N. 15:27 11/22/2016 Toradol (Ketorolac Tromethamine) IM 60 mg given. Given in the left deltoid. Allergies verified and confirmed 5 rights. --15:27 Becky Johnson R.N. DISPOSITION / DISCHARGE 15:49 11/22/16. Departure time: 1544. Condition at departure: improved and stable. No learning barriers present. Discharge instructions provided and reviewed with the patient. Reviewed medication(s). Patient verbalized understanding. Written instructions provided in Kinyarwanda. The patient was discharged by the nurse practitioner. He was discharged home and accompanied by spouse. He left the Emergency Department ambulatory and via private vehicle. Spouse driving. --15:50 Rasheed Macias R.N. 15:42 11/22/16. BP: 106/88. HR: 99. RR: 16. O2 saturation: 98% on room air. Temp: 98.5 F (oral). Pain level now: 03/08. --15:50 Rasheed Macias R.N. Locked/Released at 11/22/2016 15:50 by Rasheed Macias R.N.
--- NOTE | 2016-11-22 15:35 | ED NURSING NOTES ---
Clinical Report - Nurses [facility] [address] [place] [address] 11/22/2016 14:30 Patient: PETE ROBLERO TRIAGE Triage time 14:46. Acuity: LEVEL 4. Chief Complaint: BACK PAIN and NUMBNESS and WEAKNESS ([place] a pop and now has back pain and going to his legs and having minimal urination and diff with stooling). --14:50 Becky Johnson R.N. Alert. --14:51 Becky Johnson R.N. 14:51 11/22/16. BP: 111/69. HR: 95. RR: 22. O2 saturation: 98%. Temp: 98.5 F. Pain level now 8/10. --14:51 Becky Johnson R.N. Weight: 129.2 kg stated. Height/Length: 68 inches Per Patient. BMI: 43.3. --14:50 Becky Johnosn R.N. Medications Albuterol Sulfate HFA Inhalation. ASA 81mg daily am . Atorvastating 80mg daily . Doxazosin Mesylate Oral (Tablet 4 mg) 1 tablet, q hs. Furosemide Oral 40 mg, 1-2 day prn ankle swelling. Gabapentin Oral 1200mg, 3x a day. HumuLIN R Injection 60-80 in am, and sliding at night . Ibuprofen Oral, PRN. Imodium A-D Oral 2 mg, PRN. Insulin, humanlin. Isosorbide Mononitrate Oral 60mg daily . Lantus Subcutaneous 100 am and HS . Metoprolol Tartrate Oral 25 mg, daily . --14:48 Becky Johnson R.N. Nitro-Bid Transdermal 0.4 PRN . Pantoprazole Sodium Oral 20 mg, daily. Percocet Oral 10/325 mg, 3x a day. Potassium Chloride Oral 20 meq, 2x a day. --14:48 Becky Johnson R.N. Allergies Imitrex. Tape. Vicodin. --14:48 Becky Johnson R.N. Dilaudid. --14:49 Becky Johnson R.N. History Arrived by private vehicle. Historian: family. Accompanied by family. Primary physician (Olesya). The patient has had numbness, weakness, tingling, and trouble walking. History of recent trauma- (working on his car and felt a POP). 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 PAST MEDICAL HX: Diabetes mellitus. SOCIAL HX: Current every day heavy tobacco smoker (cigarette)- less than 1 pack per day. No alcohol use or drug use. --14:50 Becky Johnson R.N. PROBLEMS: Chest Pain. Ureterolithiasis. Hematuria. Syncope. Intervertebral Disc Disease. Neck Pain. Cholelithiasis. Abdominal Pain. Myofascial Strain. Neuropathy. Back Pain. Diarrhea. Diabetes Mellitus. Prostatitis. COPD - Chronic Obstructive Pulmonary Disease. --14:49 Becky Johnson R.N. ADDITIONAL SURGERIES: Back Surgery. Intestine surgery. Lt knee . Lt shoulder surgery. Rt hand. --14:49 Becky Johnson R.N. PHYSICAL ASSESSMENT GENERAL / NEURO / PSYCH: Alert. Oriented X 4. Appears in pain and in distress. BACK: Limited ROM of the back. Vertebral point tenderness. --14:52 Becky Johnson R.N. NURSING PROGRESS NOTES Patient identifiers checked. Call light placed in reach. Patient ready for evaluation- ED physician notified. --14:52 Becky Johnson R.N. 15:27 11/22/2016 Toradol (Ketorolac Tromethamine) IM 60 mg given. Given in the left deltoid. Allergies verified and confirmed 5 rights. --15:27 Becky Johnson R.N. DISPOSITION / DISCHARGE 15:49 11/22/16. Departure time: 1544. Condition at departure: improved and stable. No learning barriers present. Discharge instructions provided and reviewed with the patient. Reviewed medication(s). Patient verbalized understanding. Written instructions provided in Serbian. The patient was discharged by the nurse practitioner. He was discharged home and accompanied by spouse. He left the Emergency Department ambulatory and via private vehicle. Spouse driving. --15:50 Rasheed Macias R.N. 15:42 11/22/16. BP: 106/88. HR: 99. RR: 16. O2 saturation: 98% on room air. Temp: 98.5 F (oral). Pain level now: 03/08. --15:50 Rasheed Macias R.N. Locked/Released at 11/22/2016 15:50 by Rasheed Macias R.N.
--- NOTE | 2016-11-22 16:08 | ED MAR SUMMARY ---
..... Medication Administration Record [facility] [address] [place] [address] Patient: PETE ROBLERO Visit ID: [id number] 46y, M Weight: 129.2 kg Height/Length: 68 in BMI: 43.3 ALLERGIES: Dilaudid, Imitrex, Tape, Vicodin Given 15:27 11/22/2016 Becky Johnson R.N. Medication Administered: TORADOL [IM] (KETOROLAC TROMETHAMINE), Dose: 60 mg IM. Medication Ordered: Toradol IM 60 mg (NOW).
--- NOTE | 2016-11-22 16:08 | ED MED RECONCILIATION SUMMARY ---
Patient: PETE ROBLERO Medication Reconciliation Report [facility] VisitID: [id number] [address] [place] [address] 46y, M Registration Date/Time: 11/22/2016 Weight: 129.2 kg Height/Length: 68 in. BMI: 43.3 ALLERGIES: Dilaudid, Imitrex, Tape, Vicodin The patient's Home Medications are listed below: THE FOLLOWING MEDICATIONS NEED TO BE RECONCILED: Albuterol Sulfate HFA Inhalation ASA 81mg daily am Atorvastating 80mg daily Doxazosin Mesylate Oral (4 mg) 1 tablet, q hs Furosemide Oral 40 mg, 1-2 day prn ankle swelling Gabapentin Oral 1200mg, 3x a day HumuLIN R Injection 60-80 in am, and sliding at night Ibuprofen Oral, PRN Imodium A-D Oral 2 mg, PRN Insulin, humanlin Isosorbide Mononitrate Oral 60mg daily Lantus Subcutaneous 100 am and HS Metoprolol Tartrate Oral 25 mg, daily Nitro-Bid Transdermal 0.4 PRN Pantoprazole Sodium Oral 20 mg, daily Percocet Oral 10/325 mg, 3x a day Potassium Chloride Oral 20 meq, 2x a day The source(s) of the original Home Medication information: Not obtained. The following Medications were given to the patient in the Emergency Department: Toradol [IM] IM 60 mg, administered: 11/22/2016 3:27:00 PM The following Medications were prescribed to the patient: Toradol 10 mg tablets: Take 1 tablet orally every 6 hours as needed. Dispense fifteen (15). No refills. Substitution is permissible. -- Bianca Kramer, Osvaldo.R.N.P. Medrol Dosepak: take according to package directions. Dispense one (1) dosepak. No refills. Substitution is permissible. -- Bianca Kramer A.R.N.P.
--- NOTE | 2016-11-22 16:08 | ED MED RECONCILIATION SUMMARY ---
Patient: PETE ROBLERO Medication Reconciliation Report [facility] VisitID: [id number] [address] [place] [address] 46y, M Registration Date/Time: 11/22/2016 Weight: 129.2 kg Height/Length: 68 in. BMI: 43.3 ALLERGIES: Dilaudid, Imitrex, Tape, Vicodin The patient's Home Medications are listed below: THE FOLLOWING MEDICATIONS NEED TO BE RECONCILED: Albuterol Sulfate HFA Inhalation ASA 81mg daily am Atorvastating 80mg daily Doxazosin Mesylate Oral (4 mg) 1 tablet, q hs Furosemide Oral 40 mg, 1-2 day prn ankle swelling Gabapentin Oral 1200mg, 3x a day HumuLIN R Injection 60-80 in am, and sliding at night Ibuprofen Oral, PRN Imodium A-D Oral 2 mg, PRN Insulin, humanlin Isosorbide Mononitrate Oral 60mg daily Lantus Subcutaneous 100 am and HS Metoprolol Tartrate Oral 25 mg, daily Nitro-Bid Transdermal 0.4 PRN Pantoprazole Sodium Oral 20 mg, daily Percocet Oral 10/325 mg, 3x a day Potassium Chloride Oral 20 meq, 2x a day The source(s) of the original Home Medication information: Not obtained. The following Medications were given to the patient in the Emergency Department: Toradol [IM] IM 60 mg, administered: 11/22/2016 3:27:00 PM The following Medications were prescribed to the patient: Toradol 10 mg tablets: Take 1 tablet orally every 6 hours as needed. Dispense fifteen (15). No refills. Substitution is permissible. -- Bianca Kramer, Osvaldo.R.N.P. Medrol Dosepak: take according to package directions. Dispense one (1) dosepak. No refills. Substitution is permissible. -- Bianca Kramer A.R.N.P.
--- NOTE | 2016-11-22 16:08 | ED MAR SUMMARY ---
..... Medication Administration Record [facility] [address] [place] [address] Patient: PETE ROBLERO Visit ID: [id number] 46y, M Weight: 129.2 kg Height/Length: 68 in BMI: 43.3 ALLERGIES: Dilaudid, Imitrex, Tape, Vicodin Given 15:27 11/22/2016 Becky Johnson R.N. Medication Administered: TORADOL [IM] (KETOROLAC TROMETHAMINE), Dose: 60 mg IM. Medication Ordered: Toradol IM 60 mg (NOW).
--- NOTE | 2016-11-22 16:08 | ED DISCHARGE INSTRUCTIONS ---
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 Lumbar radiculopathy present. No sciatica or neurological deficit. INSTRUCTIONS Warnings: GENERAL WARNINGS: Return or contact your physician immediately if your condition worsens or changes unexpectedly, if not improving as expected, or if other problems arise. SPECIFICALLY, return if you develop weakness of the foot or leg, numbness or incontinence of feces (loss of bowel control) or urine (loss of bladder control). worsening. Prescription Medications: Toradol 10 mg tablets: Take 1 tablet orally every 6 hours as needed. Dispense fifteen (15). No refills. Substitution is permissible. Medrol Dosepak: take according to package directions. Dispense one (1) dosepak. No refills. Substitution is permissible. Follow-up: Follow up with your doctor in about three days even if well. Call for an appointment. Summary of care provided to patient. Understanding of the discharge instructions verbalized by patient. ADDITIONAL INFORMATION Back Pain [Acute Or Chronic] Back pain is usually caused by an injury to the muscles or ligaments of the spine. Sometimes the disks that separate each bone in the spine may bulge and cause pain by pressing on a nearby nerve. Back pain may also appear after a sudden twisting/bending force (such as in a car accident), after a simple awkward movement, or lifting something heavy with poor body positioning. In either case, muscle spasm is often present and adds to the pain. Acute back pain usually gets better in one to two weeks. Back pain related to disk disease, arthritis in the spinal joints or spinal stenosis (narrowing of the spinal canal) can become chronic and last for months or years. Unless you had a physical injury (for example, a car accident or fall) X-rays are usually not ordered for the initial evaluation of back pain. If pain continues and does not respond to medical treatment, x-rays and other tests may be performed at a later time. Home Care: You may need to stay in bed the first few days. But, as soon as possible, begin sitting or walking to avoid problems with prolonged bed rest (muscle weakness, worsening back stiffness and pain, blood clots in the legs). When in bed, try to find a position of comfort. A firm mattress is best. Try lying flat on your back with pillows under your knees. You can also try lying on your side with your knees bent up towards your chest and a pillow between your knees. Avoid prolonged sitting. This puts more stress on the lower back than standing or walking. During the first two days after injury, apply an ICE PACK to the painful area for 20 minutes every 2-4 hours. This will reduce swelling and pain. HEAT (hot shower, hot bath or heating pad) works well for muscle spasm. You can start with ice, then switch to heat after two days. Some patients feel best alternating ice and heat treatments. Use the one method that feels the best to you. You may use acetaminophen (Tylenol) or ibuprofen (Motrin, Advil) to control pain, unless another pain medicine was prescribed. [NOTE: If you have chronic liver or kidney disease or ever had a stomach ulcer or GI bleeding, talk with your doctor before using these medicines.] Be aware of safe lifting methods and do not lift anything over 15 pounds until all the pain is gone. Follow Up with your doctor or this facility if your symptoms do not start to improve after one week. Physical therapy may be needed. [NOTE: If X-rays were taken, they will be reviewed by a radiologist. You will be notified of any new findings that may affect your care.] Get Prompt Medical Attention if any of the following occur: Pain becomes worse or spreads to your legs Weakness or numbness in one or both legs Loss of bowel or bladder control Numbness in the groin or genital area Ketorolac Tromethamine Oral tablet What is this medicine? KETOROLAC (daniella toe ROLE ak) is a non-steroidal anti-inflammatory drug (NSAID). It is used for a short while to treat moderate to severe pain, including pain after surgery. It should not be used for more than 5 days. How should I use this medicine? Take this medicine by mouth with a full glass of water. Follow the directions on the prescription label. Take your medicine at regular intervals. Do not take your medicine more often than directed. Do not take more than the recommended dose. A special MedGuide will be given to you by the pharmacist with each prescription and refill. Be sure to read this information carefully each time. Talk to your housesmith regarding the use of this medicine in children. While this drug may be prescribed for children as young as 16 years of age for selected conditions, precautions do apply. Patients over 65 years old may have a stronger reaction and need a smaller dose. What side effects may I notice from receiving this medicine? Side effects that you should report to your doctor or health medicare contact specialist as soon as possible: allergic reactions like skin rash, itching or hives, swelling of the face, lips, or tongue black or tarry stools breathing problems changes in vision chest pain high blood pressure nausea or vomiting redness, blistering, peeling or loosening of the skin, including inside the mouth severe abdominal pain slurred speech or weakness on one side of the body unexplained weight gain or swelling unusual bleeding or bruising unusually weak or tired yellowing of eyes or skin Side effects that usually do not require medical attention (report to your doctor or health medicare contact specialist if they continue or are bothersome): diarrhea dizziness headache heartburn What may interact with this medicine? Do not take this medicine with any of the following medications: aspirin and aspirin-like medicines cidofovir methotrexate NSAIDs, medicines for pain and inflammation, like ibuprofen or naproxen pemetrexed probenecid This medicine may also interact with the following medications: alcohol alendronate alprazolam carbamazepine cyclosporine diuretics flavocoxid fluoxetine ginkgo lithium medicines for high blood pressure like enalapril medicines that affect platelets like pentoxifylline medicines that treat or prevent blood clots like heparin, warfarin muscle relaxants phenytoin steroid medicines like prednisone or cortisone thiothixene What if I miss a dose? If you miss a dose, take it as soon as you can. If it is almost time for your next dose, take only that dose. Do not take double or extra doses. Where should I keep my medicine? Keep out of the reach of children. Store at room temperature between 20 and 25 degrees C (68 and 77 degrees F). Throw away any unused medicine after the expiration date. What should I tell my health care provider before I take this medicine? They need to know if you have any of these conditions: asthma bleeding problems like hemophilia cigarette smoker drink more than 3 alcohol containing drinks a day heart disease or circulation problems such as heart failure or leg edema (fluid retention) high blood pressure kidney disease liver disease stomach bleeding or ulcers an unusual or allergic reaction to ketorolac, aspirin, other NSAIDs, other medicines, foods, dyes, or preservatives or trying to get breast-feeding What should I watch for while using this medicine? Tell your doctor or health medicare contact specialist if your pain does not get better. Talk to your doctor before taking another medicine for pain. Do not treat yourself. This medicine does not prevent heart attack or stroke. In fact, this medicine may increase the chance of a heart attack or stroke. The chance may increase with longer use of this medicine and in people who have heart disease. If you take aspirin to prevent heart attack or stroke, talk with your doctor or health medicare contact specialist. Do not take medicines such as ibuprofen and naproxen with this medicine. Side effects such as stomach upset, nausea, or ulcers may be more likely to occur. Many medicines available without a prescription should not be taken with this medicine. This medicine can cause ulcers and bleeding in the stomach and intestines at any time during treatment. Do not smoke cigarettes or drink alcohol. These increase irritation to your stomach and can make it more susceptible to damage from this medicine. Ulcers and bleeding can happen without warning symptoms and can cause . You may get drowsy or dizzy. Do not drive, use machinery, or do anything that needs mental alertness until you know how this medicine affects you. Do not stand or sit up quickly, especially if you are an older patient. This reduces the risk of dizzy or fainting spells. This medicine can cause you to bleed more easily. Try to avoid damage to your teeth and gums when you brush or floss your teeth. Methylprednisolone Oral tablet What is this medicine? METHYLPREDNISOLONE (meth ill pred NISS oh lone) is a corticosteroid. It is commonly used to treat inflammation of the skin, joints, lungs, and other organs. Common conditions treated include asthma, allergies, and arthritis. It is also used for other conditions, such as blood disorders and diseases of the adrenal glands. How should I use this medicine? Take this medicine by mouth with a drink of water. Follow the directions on the prescription label. Take it with food or milk to avoid stomach upset. If you are taking this medicine once a day, take it in the morning. Do not take more medicine than you are told to take. Do not suddenly stop taking your medicine because you may develop a severe reaction. Your doctor will tell you how much medicine to take. If your doctor wants you to stop the medicine, the dose may be slowly lowered over time to avoid any side effects. Talk to your housesmith regarding the use of this medicine in children. Special care may be needed. What side effects may I notice from receiving this medicine? Side effects that you should report to your doctor or health medicare contact specialist as soon as possible: allergic reactions like skin rash, itching or hives, swelling of the face, lips, or tongue eye pain, decreased or blurred vision, or bulging eyes fever, sore throat, sneezing, cough, or other signs of infection, wounds that will not heal increased thirst mental depression, mood swings, mistaken feelings of self importance or of being mistreated pain in hips, back, ribs, arms, shoulders, or legs swelling of the ankles, feet, hands trouble passing urine or change in the amount of urine Side effects that usually do not require medical attention (report to your doctor or health medicare contact specialist if they continue or are bothersome): confusion, excitement, restlessness headache nausea, vomiting skin problems, acne, thin and shiny skin weight gain What may interact with this medicine? Do not take this medicine with any of the following medications: mifepristone This medicine may also interact with the following medications: tacrolimus vaccines warfarin What if I miss a dose? If you miss a dose, take it as soon as you can. If it is almost time for your next dose, talk to your doctor or health medicare contact specialist. You may need to miss a dose or take an extra dose. Do not take double or extra doses without advice. Where should I keep my medicine? Keep out of the reach of children. Store at room temperature between 20 and 25 degrees C (68 and 77 degrees F). Throw away any unused medicine after the expiration date. What should I tell my health care provider before I take this medicine? They need to know if you have any of these conditions: Converse's syndrome diabetes glaucoma heart problems or disease high blood pressure infection such as herpes, measles, tuberculosis, or chickenpox kidney disease liver disease mental problems myasthenia gravis osteoporosis seizures stomach ulcer or intestine disease including colitis and diverticulitis thyroid problem an unusual or allergic reaction to lactose, methylprednisolone, other medicines, foods, dyes, or preservatives or trying to get breast-feeding What should I watch for while using this medicine? Visit your doctor or health medicare contact specialist for regular checks on your progress. If you are taking this medicine for a long time, carry an identification card with your name and address, the type and dose of your medicine, and your doctor's name and address. The medicine may increase your risk of getting an infection. Stay away from people who are sick. Tell your doctor or health medicare contact specialist if you are around anyone with measles or chickenpox. If you are going to have surgery, tell your doctor or health medicare contact specialist that you have taken this medicine within the last twelve months. Ask your doctor or health medicare contact specialist about your diet. You may need to lower the amount of salt you eat. The medicine can increase your blood sugar. If you are a diabetic check with your doctor if you need help adjusting the dose of your diabetic medicine. You have been given the following additional information: Back Pain (Acute Or Chronic) Ketorolac Tromethamine Oral tablet Methylprednisolone Oral tablet (Electronically signed by Bianca Kramer A.R.N.P. 11/22/2016 16:07)
--- NOTE | 2016-11-22 16:08 | ED DISCHARGE INSTRUCTIONS ---
Patient: PETE ROBLERO General Instructions [facility] VisitID: [id number] [place] [address] 46y, M Registration Date/Time: 11/22/2016 Chronic nontraumatic thoracic and lumbar back pain. Lumbar radiculopathy present. No sciatica or neurological deficit. INSTRUCTIONS Warnings: GENERAL WARNINGS: Return or contact your physician immediately if your condition worsens or changes unexpectedly, if not improving as expected, or if other problems arise. SPECIFICALLY, return if you develop weakness of the foot or leg, numbness or incontinence of feces (loss of bowel control) or urine (loss of bladder control). worsening. Prescription Medications: Toradol 10 mg tablets: Take 1 tablet orally every 6 hours as needed. Dispense fifteen (15). No refills. Substitution is permissible. Medrol Dosepak: take according to package directions. Dispense one (1) dosepak. No refills. Substitution is permissible. Follow-up: Follow up with your doctor in about three days even if well. Call for an appointment. Summary of care provided to patient. Understanding of the discharge instructions verbalized by patient. ADDITIONAL INFORMATION Back Pain [Acute Or Chronic] Back pain is usually caused by an injury to the muscles or ligaments of the spine. Sometimes the disks that separate each bone in the spine may bulge and cause pain by pressing on a nearby nerve. Back pain may also appear after a sudden twisting/bending force (such as in a car accident), after a simple awkward movement, or lifting something heavy with poor body positioning. In either case, muscle spasm is often present and adds to the pain. Acute back pain usually gets better in one to two weeks. Back pain related to disk disease, arthritis in the spinal joints or spinal stenosis (narrowing of the spinal canal) can become chronic and last for months or years. Unless you had a physical injury (for example, a car accident or fall) X-rays are usually not ordered for the initial evaluation of back pain. If pain continues and does not respond to medical treatment, x-rays and other tests may be performed at a later time. Home Care: You may need to stay in bed the first few days. But, as soon as possible, begin sitting or walking to avoid problems with prolonged bed rest (muscle weakness, worsening back stiffness and pain, blood clots in the legs). When in bed, try to find a position of comfort. A firm mattress is best. Try lying flat on your back with pillows under your knees. You can also try lying on your side with your knees bent up towards your chest and a pillow between your knees. Avoid prolonged sitting. This puts more stress on the lower back than standing or walking. During the first two days after injury, apply an ICE PACK to the painful area for 20 minutes every 2-4 hours. This will reduce swelling and pain. HEAT (hot shower, hot bath or heating pad) works well for muscle spasm. You can start with ice, then switch to heat after two days. Some patients feel best alternating ice and heat treatments. Use the one method that feels the best to you. You may use acetaminophen (Tylenol) or ibuprofen (Motrin, Advil) to control pain, unless another pain medicine was prescribed. [NOTE: If you have chronic liver or kidney disease or ever had a stomach ulcer or GI bleeding, talk with your doctor before using these medicines.] Be aware of safe lifting methods and do not lift anything over 15 pounds until all the pain is gone. Follow Up with your doctor or this facility if your symptoms do not start to improve after one week. Physical therapy may be needed. [NOTE: If X-rays were taken, they will be reviewed by a radiologist. You will be notified of any new findings that may affect your care.] Get Prompt Medical Attention if any of the following occur: Pain becomes worse or spreads to your legs Weakness or numbness in one or both legs Loss of bowel or bladder control Numbness in the groin or genital area Ketorolac Tromethamine Oral tablet What is this medicine? KETOROLAC (daniella toe ROLE ak) is a non-steroidal anti-inflammatory drug (NSAID). It is used for a short while to treat moderate to severe pain, including pain after surgery. It should not be used for more than 5 days. How should I use this medicine? Take this medicine by mouth with a full glass of water. Follow the directions on the prescription label. Take your medicine at regular intervals. Do not take your medicine more often than directed. Do not take more than the recommended dose. A special MedGuide will be given to you by the pharmacist with each prescription and refill. Be sure to read this information carefully each time. Talk to your technology sales representative regarding the use of this medicine in children. While this drug may be prescribed for children as young as 16 years of age for selected conditions, precautions do apply. Patients over 65 years old may have a stronger reaction and need a smaller dose. What side effects may I notice from receiving this medicine? Side effects that you should report to your doctor or health healthcare interpreter as soon as possible: allergic reactions like skin rash, itching or hives, swelling of the face, lips, or tongue black or tarry stools breathing problems changes in vision chest pain high blood pressure nausea or vomiting redness, blistering, peeling or loosening of the skin, including inside the mouth severe abdominal pain slurred speech or weakness on one side of the body unexplained weight gain or swelling unusual bleeding or bruising unusually weak or tired yellowing of eyes or skin Side effects that usually do not require medical attention (report to your doctor or health healthcare interpreter if they continue or are bothersome): diarrhea dizziness headache heartburn What may interact with this medicine? Do not take this medicine with any of the following medications: aspirin and aspirin-like medicines cidofovir methotrexate NSAIDs, medicines for pain and inflammation, like ibuprofen or naproxen pemetrexed probenecid This medicine may also interact with the following medications: alcohol alendronate alprazolam carbamazepine cyclosporine diuretics flavocoxid fluoxetine ginkgo lithium medicines for high blood pressure like enalapril medicines that affect platelets like pentoxifylline medicines that treat or prevent blood clots like heparin, warfarin muscle relaxants phenytoin steroid medicines like prednisone or cortisone thiothixene What if I miss a dose? If you miss a dose, take it as soon as you can. If it is almost time for your next dose, take only that dose. Do not take double or extra doses. Where should I keep my medicine? Keep out of the reach of children. Store at room temperature between 20 and 25 degrees C (68 and 77 degrees F). Throw away any unused medicine after the expiration date. What should I tell my health care provider before I take this medicine? They need to know if you have any of these conditions: asthma bleeding problems like hemophilia cigarette smoker drink more than 3 alcohol containing drinks a day heart disease or circulation problems such as heart failure or leg edema (fluid retention) high blood pressure kidney disease liver disease stomach bleeding or ulcers an unusual or allergic reaction to ketorolac, aspirin, other NSAIDs, other medicines, foods, dyes, or preservatives or trying to get breast-feeding What should I watch for while using this medicine? Tell your doctor or health healthcare interpreter if your pain does not get better. Talk to your doctor before taking another medicine for pain. Do not treat yourself. This medicine does not prevent heart attack or stroke. In fact, this medicine may increase the chance of a heart attack or stroke. The chance may increase with longer use of this medicine and in people who have heart disease. If you take aspirin to prevent heart attack or stroke, talk with your doctor or health healthcare interpreter. Do not take medicines such as ibuprofen and naproxen with this medicine. Side effects such as stomach upset, nausea, or ulcers may be more likely to occur. Many medicines available without a prescription should not be taken with this medicine. This medicine can cause ulcers and bleeding in the stomach and intestines at any time during treatment. Do not smoke cigarettes or drink alcohol. These increase irritation to your stomach and can make it more susceptible to damage from this medicine. Ulcers and bleeding can happen without warning symptoms and can cause . You may get drowsy or dizzy. Do not drive, use machinery, or do anything that needs mental alertness until you know how this medicine affects you. Do not stand or sit up quickly, especially if you are an older patient. This reduces the risk of dizzy or fainting spells. This medicine can cause you to bleed more easily. Try to avoid damage to your teeth and gums when you brush or floss your teeth. Methylprednisolone Oral tablet What is this medicine? METHYLPREDNISOLONE (meth ill pred NISS oh lone) is a corticosteroid. It is commonly used to treat inflammation of the skin, joints, lungs, and other organs. Common conditions treated include asthma, allergies, and arthritis. It is also used for other conditions, such as blood disorders and diseases of the adrenal glands. How should I use this medicine? Take this medicine by mouth with a drink of water. Follow the directions on the prescription label. Take it with food or milk to avoid stomach upset. If you are taking this medicine once a day, take it in the morning. Do not take more medicine than you are told to take. Do not suddenly stop taking your medicine because you may develop a severe reaction. Your doctor will tell you how much medicine to take. If your doctor wants you to stop the medicine, the dose may be slowly lowered over time to avoid any side effects. Talk to your technology sales representative regarding the use of this medicine in children. Special care may be needed. What side effects may I notice from receiving this medicine? Side effects that you should report to your doctor or health healthcare interpreter as soon as possible: allergic reactions like skin rash, itching or hives, swelling of the face, lips, or tongue eye pain, decreased or blurred vision, or bulging eyes fever, sore throat, sneezing, cough, or other signs of infection, wounds that will not heal increased thirst mental depression, mood swings, mistaken feelings of self importance or of being mistreated pain in hips, back, ribs, arms, shoulders, or legs swelling of the ankles, feet, hands trouble passing urine or change in the amount of urine Side effects that usually do not require medical attention (report to your doctor or health healthcare interpreter if they continue or are bothersome): confusion, excitement, restlessness headache nausea, vomiting skin problems, acne, thin and shiny skin weight gain What may interact with this medicine? Do not take this medicine with any of the following medications: mifepristone This medicine may also interact with the following medications: tacrolimus vaccines warfarin What if I miss a dose? If you miss a dose, take it as soon as you can. If it is almost time for your next dose, talk to your doctor or health healthcare interpreter. You may need to miss a dose or take an extra dose. Do not take double or extra doses without advice. Where should I keep my medicine? Keep out of the reach of children. Store at room temperature between 20 and 25 degrees C (68 and 77 degrees F). Throw away any unused medicine after the expiration date. What should I tell my health care provider before I take this medicine? They need to know if you have any of these conditions: Berino's syndrome diabetes glaucoma heart problems or disease high blood pressure infection such as herpes, measles, tuberculosis, or chickenpox kidney disease liver disease mental problems myasthenia gravis osteoporosis seizures stomach ulcer or intestine disease including colitis and diverticulitis thyroid problem an unusual or allergic reaction to lactose, methylprednisolone, other medicines, foods, dyes, or preservatives or trying to get breast-feeding What should I watch for while using this medicine? Visit your doctor or health healthcare interpreter for regular checks on your progress. If you are taking this medicine for a long time, carry an identification card with your name and address, the type and dose of your medicine, and your doctor's name and address. The medicine may increase your risk of getting an infection. Stay away from people who are sick. Tell your doctor or health healthcare interpreter if you are around anyone with measles or chickenpox. If you are going to have surgery, tell your doctor or health healthcare interpreter that you have taken this medicine within the last twelve months. Ask your doctor or health healthcare interpreter about your diet. You may need to lower the amount of salt you eat. The medicine can increase your blood sugar. If you are a diabetic check with your doctor if you need help adjusting the dose of your diabetic medicine. You have been given the following additional information: Back Pain (Acute Or Chronic) Ketorolac Tromethamine Oral tablet Methylprednisolone Oral tablet (Electronically signed by Bianca Kramer A.R.N.P. 11/22/2016 16:07)
== END 2016-11-22 15:44 | disposition home or self-care (01) ==
LOC: ED SRH 14:29
DX: M54.6 Pain in thoracic spine (principal); M54.5 Low back pain; M54.16 Radiculopathy, lumbar region; E11.9 Type 2 diabetes mellitus without complications; J44.9 Chronic obstructive pulmonary disease, unspecified; F17.210 Nicotine dependence, cigarettes, uncomplicated; Z79.82 Long term (current) use of aspirin; Z79.4 Long term (current) use of insulin; Z88.5 Allergy status to narcotic agent

== ENCOUNTER 2016-12-27 16:25 | Emergency (ER) | payer OTHER ==
--- NOTE | 2016-12-27 17:08 | DIAGNOSTIC IMAGING REPORT ---
PROCEDURE: XR CHEST 2 VIEW INDICATION: CHEST PAIN TECHNIQUE: PA and lateral views. COMPARISON: Chest 11/01/2016 FINDINGS: Lungs are clear. Heart and mediastinum are normal. Thorax is normal. IMPRESSION: 1. Negative chest.
--- NOTE | 2016-12-27 17:44 | ED NURSING NOTES ---
Clinical Report - Nurses [facility] [address] [place] [address] 12/27/2016 16:25 Patient: PETE ROBLERO TRIAGE Triage time 1630. Chief Complaint: CHEST PAIN and DISCOMFORT and (Pt states he was at the library, developed sob, headache, diaphoresis, and 10/10 chest pain, since pt has hx of angina, took 2 Nitroglycerin tabs with little effect, and was hospitalized less than a week ago at [facility] for "passing out"). Alert. --16:44 La Lozano R.N. 16:30 12/27/16. BP: 128/73. HR: 87. RR: 18. O2 saturation: 97%. Pain level now: 07/08. --16:44 La Lozano R.N. Acuity: LEVEL 3. Alert. --16:50 La Lozano R.N. 16:46 12/27/16. Temp: 98.6 F. --16:50 La Lzoano R.N. Weight: 122.4 kg stated. Height/Length: 68 inches Per Patient. BMI: 41. --16:48 La Lozano R.N. Medications Albuterol Sulfate HFA Inhalation. ASA 81mg daily am . Doxazosin Mesylate Oral (Tablet 4 mg) 1 tablet, q hs. Furosemide Oral 40 mg, 1-2 day prn ankle swelling. Gabapentin Oral 1200mg, 3x a day. HumuLIN R Injection 60-80 in am, and sliding at night . Ibuprofen Oral, PRN. Imodium A-D Oral 2 mg, PRN. Insulin, humanlin. --16:47 La Lozano R.N. Isosorbide Mononitrate Oral 60mg daily . Lantus Subcutaneous 100 am and HS . Metoprolol Tartrate Oral 25 mg, daily . Nitro-Bid Transdermal 0.4 PRN . Pantoprazole Sodium Oral 20 mg, daily. Percocet Oral 10/325 mg, 3x a day. Potassium Chloride Oral 20 meq, 2x a day. --16:47 La Lozano R.N. Atorvastatin Calcium Oral 10 mg, daily. --16:47 La Lozano R.N. Allergies Dilaudid. Imitrex. Tape. Vicodin. --16:47 La Lozano R.N. History Arrived by private vehicle. Historian: patient. Accompanied by spouse. Primary physician (Helen). This started just prior to arrival and today. 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 SOCIAL HX: Light tobacco smoker (cigarette)- less than 1/2 a pack per day. --16:44 La Lozano R.N. PAST MEDICAL HX: ( Pt has lost nearly 100 lbs over the past year due to healthier diet.). SOCIAL HX: No alcohol use or drug use. ABUSE ASSESSMENT: Abuse assessment: ("yes") The patient was asked "Are you afraid to go home?". --16:50 La Lozano R.N. PROBLEMS: Angina. Chest Pain. Ureterolithiasis. Hematuria. Syncope. Intervertebral Disc Disease. Neck Pain. Cholelithiasis. Abdominal Pain. Myofascial Strain. Neuropathy. Back Pain. Diarrhea. Diabetes Mellitus. Prostatitis. COPD - Chronic Obstructive Pulmonary Disease. --16:48 La Lozano R.N. Myocardial Infarction. --16:49 La Lozano R.N. ADDITIONAL SURGERIES: Back Surgery. Intestine surgery. Lt knee . Lt shoulder surgery. Rt hand. --16:48 La Lozano R.N. Interventions ID band on patient. To room. --16:50 La Lozano R.N. PHYSICAL ASSESSMENT 16:30. Patient gowned. GENERAL / NEURO / PSYCH: Alert. Oriented X 4. Appears anxious. --16:51 La Lozano R.N. NURSING PROGRESS NOTES 16:42 12/27/2016 Site #1 started via IV in the right hand with an 20g angiocath, with aseptic technique and good blood return; one attempt. Blood drawn: rainbow set. Labeled in the presence of the patient and sent to the lab. Saline lock flushed with 10 mL saline. --16:42 Loretta Saunders R.N. 16:30. air sampling and monitoring, pulse oximeter and NIBP monitor placed on patient; pvc monitor- Lead II and V1; monitor alarms on. Patient gowned. Head of bed elevated. --16:44 La Lozano R.N. 16:46 12/27/2016 Aspirin PO Tablets 325 mg given. Allergies verified and confirmed 5 rights. --16:46 Loretta Saunders R.N. 16:51 12/27/16. Patient transported to radiology by stretcher with tech. --16:51 La Lozano R.N. 16:35. Oxygen administered by nasal cannula at 2 liters. --16:53 La Lozano R.N. 17:07 12/27/16. BP: 104/56. HR: 86. RR: 18. O2 saturation: 96%. --17:08 La Lozano R.N. 17:19 12/27/2016 Started bag #1 1000 mL IV Fluids IV NS (Saline); at 1000 mL/hr via site #1 via IV pump. Allergies verified and confirmed 5 rights. --17:29 La Lozano R.N. 17:15. ( Pt stated "I don't want to waste your time". Declined to wear O2 per NC.). --17:57 La Lozano R.N. 17:30 12/27/2016 IV Fluids IV NS Discontinued: bag #1 discontinued. Total amount infused: 700 mL. IV patency established. IV site checked: no pain, redness, or swelling. IV flushed thoroughly. --17:58 La Lozano R.N. 17:31 12/27/2016 Site #1 removed upon discharge. Bandage applied. --17:58 La Lozano R.N. 17:38 12/27/2016 Acetaminophen (APAP) PO 1000 mg given. Allergies verified and confirmed 5 rights. --17:38 La Lozano R.N. 17:39 12/27/2016 Insulin Reg Subcutaneous 8 unit given. Given in the left upper arm. Confirmed 5 rights. --17:39 La Lozano R.N. EKG time: (1635). EKG was performed by a tech and shown to the ED physician. --18:00 La Lozano R.N. DISPOSITION / DISCHARGE Departure time: 1730. Condition at departure: unchanged. No learning barriers present. Discharge instructions provided and reviewed with the patient and spouse. Reviewed referral to family practice for followup. Verbalized understanding. Written instructions provided. The patient left the Emergency Department against medical advice. The patient appears to be alert and oriented x4. He notified the ED staff prior to leaving the department and stated is leaving the ED due to personal reasons. Notified the ED physician of patient departure. Prior to leaving the ED, he was advised to stay for completion of treatment and return if needed. He was informed of the risks of leaving and verbalized understanding of these risks. Patient signed form prior to leaving. He left the Emergency Department ambulatory and via private vehicle. --17:56 La Lozano R.N. 17:30 12/27/16. BP: 116/72. HR: 88. RR: 18. O2 saturation: 96% on room air. Temp: 98.1 F. Pain level now: 02/05. --17:56 La Lozano R.N. Locked/Released at 12/27/2016 18:03 by La Lozano R.N.
--- NOTE | 2016-12-27 17:44 | ED CLINICAL REPORT ---
Clinical Report - Physicians/Mid Levels [facility] [address] [place] [address] 12/27/2016 16:25 Patient: PETE ROBLERO Time Seen: 16:32. Arrived- By private vehicle. Historian- patient. HISTORY OF PRESENT ILLNESS Chief Complaint: CHEST DISCOMFORT. It is described as dull and "pain" and it is described as located in the left chest area. No radiation. At its maximum, severity described as severe. When seen in the E.D., severity described as moderate. Modifying factors- worsened by movement. Relieved by rest. This started just prior to arrival and is still present. It was gradual in onset and has been waxing/waning. Onset during light activity. No nausea, vomiting, difficulty breathing or diaphoresis. Similar symptoms previously: Recent medical care: The patient was seen recently at this facility and another facility in the emergency department and hospitalized. ( 12/23/2016: Seen at [facility] ED - was release from the hospital that day and returned to the ED later in the day 12/21/16: Admitted to [facility] from the ED after syncope and chest pain - had extensive cardiac work up and monitoring; had CT head and chest 12/17/16: seen at [facility] ED for CP - diagnosed with (noncardiac) chest pain and anxiety and d/c'd home; Glucose 489 on that visit; trop T <0.10ug/L Seen last month at [facility] ED with negative cardiac work up Seen at [facility] ED 11/21/16 with negative work up Seen at [facility] ED 11/01/16 for chest pain and neg work up Seen at [facility] ED 11/22/16 with back pain). REVIEW OF SYSTEMS No fever, chills, cough, pedal edema or calf pain. No headache, sore throat, abdominal pain, black stools or difficulty with urination. No skin rash, enlarged lymph nodes or bloody stools. The patient experienced syncope; (1 1/2 weeks ago). He has had joint pain. All systems otherwise negative, except as recorded above. PAST HISTORY See nurses notes. See nurses notes. PROBLEMS: Chest Pain. Ureterolithiasis. Hematuria. Syncope. Intervertebral Disc Disease. Neck Pain. Cholelithiasis. Abdominal Pain. Myofascial Strain. Neuropathy. Back Pain. Diarrhea. Diabetes Mellitus. Prostatitis. COPD - Chronic Obstructive Pulmonary Disease. SURGERIES: Back Surgery. Intestine surgery. Lt knee . Lt shoulder surgery. Rt hand. Medications: Atorvastatin Calcium Oral 10 mg, daily. Isosorbide Mononitrate Oral 60mg daily . Lantus Subcutaneous 100 am and HS . Metoprolol Tartrate Oral 25 mg, daily . Nitro-Bid Transdermal 0.4 PRN . Pantoprazole Sodium Oral 20 mg, daily. Percocet Oral 10/325 mg, 3x a day. Potassium Chloride Oral 20 meq, 2x a day. Albuterol Sulfate HFA Inhalation. ASA 81mg daily am . Doxazosin Mesylate Oral (Tablet 4 mg) 1 tablet, q hs. Furosemide Oral 40 mg, 1-2 day prn ankle swelling. Gabapentin Oral 1200mg, 3x a day. HumuLIN R Injection 60-80 in am, and sliding at night . Ibuprofen Oral, PRN. Imodium A-D Oral 2 mg, PRN. Insulin, humanlin. Allergies: Dilaudid. Imitrex. Tape. Vicodin. SOCIAL HISTORY Smoker- current status unknown. 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 No alcohol use. Is a local resident. FAMILY HISTORY Father with DM and [place] age 49 y/o Mother with CABG at 59 y/o Grandmother [place] at 47 y/o Grandfather - CVA. ADDITIONAL NOTES The nursing notes have been reviewed. PHYSICAL EXAM Vital Signs: 12/27/2016 16:30 BP: 128/73. HR: 87. RR: 18. O2 saturation: 97%. Pain level now: 07/08. Appearance: Alert. Oriented X3. Anxious. Patient in mild distress. Eyes: Pupils equal, round and reactive to light. Eyes normal inspection. No scleral icterus or pale conjunctivae. ENT: Pharynx normal. No pharyngeal erythema or tonsillar exudate. The mucous membranes are not dry. Neck: Normal inspection. Neck supple. CVS: Normal heart rate and rhythm. Heart sounds normal. Pulses normal. Respiratory: No respiratory distress. Breath sounds normal. (mild left lower chest wall tenderness that does not seem to reproduce his subjective complaint). Abdomen: Soft and nontender. Back: Normal external inspection. Skin: Skin warm and dry. Normal skin color. Normal skin turgor. Extremities: Extremities exhibit normal ROM. No lower extremity edema. Neuro: Oriented X 3. No motor deficit. LABS, X-RAYS, AND EKG EKG: EKG time: (16:35). Normal sinus rhythm. Rate: 85. Normal P waves. Normal ARABELLA. Normal QRS complex. Normal axis. Normal ST and T waves. T wave flattening in lead III, aVL, V1 and V2. The study has been interpreted contemporaneously by me. The EKG appears to be a good tracing. Rhythm Strip #1: Normal sinus rhythm. Regular rhythm. Narrow QRS complexes. No ectopy. Chest X-ray: No acute disease. Normal lung markings present. Normal heart size. Mediastinum normal. Great vessels normal. Soft tissues normal. No infiltrate. No fracture. No bony lesion present. Views: PA and lateral. The X-rays were interpreted contemporaneously by me. The X-rays were discussed with the radiologist (via PACS note). Laboratory Tests: CBC w Diff: (ALBA: 12/27/2016 16:35) ( MsgRcvd 12/27/2016 16:58) Final results Test Result Flag Units (Reference) WHITE BLOOD COUNT 11.0 K/uL (4.5-11.5) RED BLOOD COUNT 4.60 M/uL (4.50-5.90) HEMOGLOBIN 13.5 gm/dL (13.5-17.5) HEMATOCRIT 40.8 L % (41.0-53.0) MEAN CELL VOLUME 89 fL (80-100) MEAN CORPUSCULAR HGB 29 pg (26-34) MEAN CORPUSCULAR HGB CONC 33 g/dL (31-37) RED CELL DISTRIBUTION WIDTH 13.5 % (11.6-14.8) PLATELET COUNT 213 K/uL (150-400) NEUTROPHIL % 67.0 % (50-75) LYMPH % 25.3 % (25-40) MONO % 6.6 % (3-14) EOSINOPHIL % 0.8 % (0-4) BASOPHIL % 0.3 % (0-2) PT with INR: (ALBA: 12/27/2016 16:35) ( MsgRcvd 12/27/2016 17:17) Final results Test Result Flag Units (Reference) INR 0.9 (0.8-1.2) Low Intensity Therapy: INR 1.5-2.0 PT range 18.5-23.1Mod.Intensity Therapy: INR 2.0-3.0 PT range 23.1-31.5High Intensity Therapy: INR 2.5-3.5 PT range 27.4-35.5High Intensity Therapy 2: INR 3.0-4.0 PT range 31.5-39.3 D-DIMER QUANTITATIVE 0.47 ug/mLFEU (0.27-0.52) The primary value of this quantitative assay relates toits negative predictive value (i.e. exclusion) of pulmonaryembolism/deep vein thrombosis/DIC.Elevated levels of d-dimer may also occur with:, age, cancer, inflammation, liver disease,post-op, infection, hematoma, coronary disease, peripheralarteriopathy, bleeding disorders and thrombolytic treatment.Results should be correlated with other clinical andradiological data.Testing Methodology: Latex Immunoassay BNP: (ALBA: 12/27/2016 16:35) ( [facility] 12/27/2016 17:18) Final results Test Result Flag Units (Reference) B-TYPE NATRIURETIC PEPTIDE 22.3 pg/ml (5-100) Amylase: (ALBA: 12/27/2016 16:35) ( [facility] 12/27/2016 17:22) Final results Test Result Flag Units (Reference) AMYLASE 34 U/L (25-115) ETHYL ALCOHOL <3 L mg/dL (3-10) THYROID STIMULATING HORMONE 1.331 uIU/mL (0.34-3.74) CHEM 13 PANEL: (ALBA: 12/27/2016 16:35) ( [facility] 12/27/2016 17:21) Final results Test Result Flag Units (Reference) GLUCOSE 614 *H mg/dL (70-110) CRITICAL RESULTS CALLEDCalled to PRUDENCIO,RN,ER 12/27/16 1721Were 2 patient identifiers used? YWas the result read back? Y BUN 22 H mg/dL (7-18) CREATININE 1.4 H mg/dL (0.6-1.3) Estimated GFR 57.49 mL/min Estimated GFR- >60 mL/min Note: Persistent reduction over 3 months in eGFR<60 mL/min/1.73 m2 defines CKD. Patients with eGFR values>=60 mL/min/1.73 m2 may also have CKD if evidence ofpersistent proteinuria. Additional information may be foundat www.kidney.org. SODIUM 128 L mmol/L (136-145) POTASSIUM 3.9 mmol/L (3.5-5.1) CHLORIDE 94 L mmol/L (98-107) CARBON DIOXIDE 20 L mmol/L (21-32) CALCIUM 8.7 mg/dL (8.5-10.1) TOTAL PROTEIN 7.4 g/dL (6.4-8.2) ALBUMIN 3.3 g/dL (3.3-5.0) BILIRUBIN, TOTAL 0.3 mg/dL (0.0-1.0) ALKALINE PHOSPHATASE 106 U/L (46-116) AST (SGOT) 13 L U/L (15-37) ALT (SGPT) 23 U/L (12-78) MAGNESIUM 1.8 mg/dL (1.8-2.4) CPK 76 U/L (24-260) TROPONIN I <0.05 L ng/mL (0.00-1.5) TROPONIN REFERENCE RANGE:<0.1 NEGATIVE0.1-1.5 INDETERMINANT>1.5 POSITIVE . Pulse Oximetry: 12/27/2016 16:30 O2 saturation: 97%. (FIO2 - room air). Interpretation: normal. Note - Tests: (Echocardiogram (12/22/16): Sinus phillip Normal LV size and wall thickness; basal inferior, mid-inferior and basal inferseptal hypokinesis. Otherwise normal wall motion. EF 60-65%; Stage 1 diastolic dysfunction; No significant abnormalities; Compared to prior study 10/25/16, focal wall motion abnormalities are newly appreciated. However, technically study is much better this time vs last time, so [id number] comparison is difficult). PROGRESS AND PROCEDURES Course of Care: Normal Saline 1 liter IVPB given. ASA 325 mg PO given. Regular Insulin 8 units IVP given. Pt has had multiple visits for chest pain related issues and extensive work up including admission to [facility] about 1 week ago for chest pain - had 3 - 4 day hospitalization with cardiology evaluation (Dr. Solomon). Prior hospitalizations at [facility] revealed: Patient with negative stress test August 2016 and normal cath in May 2016. Also had echo with no valvular disease or evidence of heart failure. 17:40. Pt requesting pain medications. He has been given ASA and apap, but feels he may need stronger pain medication. He has had multiple visits with narcotic management in the past 12 month and is prescribed percocet. He will need any ongoing narcotics prescribed by one provider (pcp or pain specialist) per [facility] opiate prescribing guidelines. He just informed the RN that he wishes to leave the hospital. He is informed that his blood surgar is markedly elevated and this needs further treatment (it was also quite elevated at his recent ED evaluations). He is informed by myself that his w/u is in progress and I do not have all data back to adequately disposition him - waiting for some records from recent admission (with extensive w/u). He insists on leaving AMA - signs AMA. Patient/family counseled. Old ED records reviewed. Patient has had multiple ED visits (64 visits to [facility] ED in past 10-13 years; Many other visits to other area ED's ([facility] and [facility])). Disposition: Discharged (left AMA). Condition: stable. CLINICAL IMPRESSION Atypical chest pain .12 lead EKG performed. Chronic, poorly controlled type 2 diabetes with hyperglycemia. No coma. INSTRUCTIONS Do not work for two days. Avoid stimulants (such as cigarettes, coffee, cold medicines, sinus medicines, street drugs). Drink plenty of fluids. Do not smoke. Seek medical help to quit smoking. (Please check your blood sugar at least 3 times per day and adjust your insulin accordingly Copy of Pain Care Plan given). Warnings: Further evaluation is necessary. GENERAL WARNINGS: Return or contact your physician immediately if your condition worsens or changes unexpectedly, if not improving as expected, or if other problems arise. Your Current Medications: CONTINUE TAKING THE FOLLOWING MEDICATIONS: Albuterol Sulfate HFA Inhalation. ASA 81mg daily am *. Atorvastatin Calcium Oral : 10 mg daily. Doxazosin Mesylate Oral : Tablet 4 mg, 1 tablet q hs. Furosemide Oral : 40 mg 1-2 day prn ankle swelling. Gabapentin Oral : 1200mg 3x a day. HumuLIN R Injection : 60-80 in am, and sliding at night. Ibuprofen Oral : PRN. Imodium A-D Oral : 2 mg PRN. Insulin, humanlin*. Isosorbide Mononitrate Oral : 60mg daily. Lantus Subcutaneous : 100 am and HS. Metoprolol Tartrate Oral : 25 mg daily. Nitro-Bid Transdermal : 0.4 PRN. Pantoprazole Sodium Oral : 20 mg daily. Percocet Oral : 10/325 mg 3x a day. Potassium Chloride Oral : 20 meq 2x a day. Follow-up: Follow up with your doctor tomorrow. AMA warnings: Oriented to person, place, and time. Gives appropriate answers and rational explanation of refusal of care. No indication for involuntary commitment is present, signs of psychosis, auditory hallucinations, delusional thinking or slurred speech. No tangential thinking, visual hallucinations or homicidal ideations. Speaks coherently. Abstract thinking intact. Clinical Impression: the patient has the capacity to make decisions regarding the medical care offered. Relevant issues reviewed and discussed with the patient. Acknowledges understanding of the reasons for recommendations regarding medical tests, procedures, admission to facility and transfer to other medical facility. The risks of refusing recommended care that were disclosed are and permanent mental impairment. Discharge instructions were provided. REFUSAL OF CARE STATEMENT (patient to review and sign in discharge instructions): I have read this paragraph. I understand that a doctor at this hospital wants to give me certain medical care. The doctor explained that care to me, and I understand what that care is. The doctor also explained to me what could happen to me if I leave here without having that care, and I understand what he said. I know that I am welcome to return to this hospital at any time to receive the recommended care or any other care that I may need at any time, regardless of my ability to pay for such care. Follow-up with: Francesco Cervantes MD, Family Practice, , [address] [place] [address] , [place], [address] Follow up tomorrow. (Electronically signed by Kartik Sterling DO 12/27/2016 17:55)
--- NOTE | 2016-12-27 17:44 | ED NURSING NOTES ---
Clinical Report - Nurses [facility] [address] [place] [address] 12/27/2016 16:25 Patient: PETE ROBLERO TRIAGE Triage time 1630. Chief Complaint: CHEST PAIN and DISCOMFORT and (Pt states he was at the library, developed sob, headache, diaphoresis, and 10/10 chest pain, since pt has hx of angina, took 2 Nitroglycerin tabs with little effect, and was hospitalized less than a week ago at [facility] for "passing out"). Alert. --16:44 La Lozano R.N. 16:30 12/27/16. BP: 128/73. HR: 87. RR: 18. O2 saturation: 97%. Pain level now: 07/08. --16:44 La Lozano R.N. Acuity: LEVEL 3. Alert. --16:50 La Lozano R.N. 16:46 12/27/16. Temp: 98.6 F. --16:50 La Lozano R.N. Weight: 122.4 kg stated. Height/Length: 68 inches Per Patient. BMI: 41. --16:48 La Lozano R.N. Medications Albuterol Sulfate HFA Inhalation. ASA 81mg daily am . Doxazosin Mesylate Oral (Tablet 4 mg) 1 tablet, q hs. Furosemide Oral 40 mg, 1-2 day prn ankle swelling. Gabapentin Oral 1200mg, 3x a day. HumuLIN R Injection 60-80 in am, and sliding at night . Ibuprofen Oral, PRN. Imodium A-D Oral 2 mg, PRN. Insulin, humanlin. --16:47 La Lozano R.N. Isosorbide Mononitrate Oral 60mg daily . Lantus Subcutaneous 100 am and HS . Metoprolol Tartrate Oral 25 mg, daily . Nitro-Bid Transdermal 0.4 PRN . Pantoprazole Sodium Oral 20 mg, daily. Percocet Oral 10/325 mg, 3x a day. Potassium Chloride Oral 20 meq, 2x a day. --16:47 La Lozano R.N. Atorvastatin Calcium Oral 10 mg, daily. --16:47 La Lozano R.N. Allergies Dilaudid. Imitrex. Tape. Vicodin. --16:47 La Lozano R.N. History Arrived by private vehicle. Historian: patient. Accompanied by spouse. Primary physician (Helen). This started just prior to arrival and today. 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 SOCIAL HX: Light tobacco smoker (cigarette)- less than 1/2 a pack per day. --16:44 La Lozano R.N. PAST MEDICAL HX: ( Pt has lost nearly 100 lbs over the past year due to healthier diet.). SOCIAL HX: No alcohol use or drug use. ABUSE ASSESSMENT: Abuse assessment: ("yes") The patient was asked "Are you afraid to go home?". --16:50 La Lozano R.N. PROBLEMS: Angina. Chest Pain. Ureterolithiasis. Hematuria. Syncope. Intervertebral Disc Disease. Neck Pain. Cholelithiasis. Abdominal Pain. Myofascial Strain. Neuropathy. Back Pain. Diarrhea. Diabetes Mellitus. Prostatitis. COPD - Chronic Obstructive Pulmonary Disease. --16:48 La Lozano R.N. Myocardial Infarction. --16:49 La Lozano R.N. ADDITIONAL SURGERIES: Back Surgery. Intestine surgery. Lt knee . Lt shoulder surgery. Rt hand. --16:48 La Lozano R.N. Interventions ID band on patient. To room. --16:50 La Lozano R.N. PHYSICAL ASSESSMENT 16:30. Patient gowned. GENERAL / NEURO / PSYCH: Alert. Oriented X 4. Appears anxious. --16:51 La Lozano R.N. NURSING PROGRESS NOTES 16:42 12/27/2016 Site #1 started via IV in the right hand with an 20g angiocath, with aseptic technique and good blood return; one attempt. Blood drawn: rainbow set. Labeled in the presence of the patient and sent to the lab. Saline lock flushed with 10 mL saline. --16:42 Loretta Saunders R.N. 16:30. panel monitor, pulse oximeter and NIBP monitor placed on patient; lunchroom monitor- Lead II and V1; monitor alarms on. Patient gowned. Head of bed elevated. --16:44 La Lozano R.N. 16:46 12/27/2016 Aspirin PO Tablets 325 mg given. Allergies verified and confirmed 5 rights. --16:46 Loretta Saunders R.N. 16:51 12/27/16. Patient transported to radiology by stretcher with tech. --16:51 La Lozano R.N. 16:35. Oxygen administered by nasal cannula at 2 liters. --16:53 La Lozano R.N. 17:07 12/27/16. BP: 104/56. HR: 86. RR: 18. O2 saturation: 96%. --17:08 La Lozano R.N. 17:19 12/27/2016 Started bag #1 1000 mL IV Fluids IV NS (Saline); at 1000 mL/hr via site #1 via IV pump. Allergies verified and confirmed 5 rights. --17:29 La Lozano R.N. 17:15. ( Pt stated "I don't want to waste your time". Declined to wear O2 per NC.). --17:57 La Lozano R.N. 17:30 12/27/2016 IV Fluids IV NS Discontinued: bag #1 discontinued. Total amount infused: 700 mL. IV patency established. IV site checked: no pain, redness, or swelling. IV flushed thoroughly. --17:58 La Lozano R.N. 17:31 12/27/2016 Site #1 removed upon discharge. Bandage applied. --17:58 La Lozano R.N. 17:38 12/27/2016 Acetaminophen (APAP) PO 1000 mg given. Allergies verified and confirmed 5 rights. --17:38 La Lozano R.N. 17:39 12/27/2016 Insulin Reg Subcutaneous 8 unit given. Given in the left upper arm. Confirmed 5 rights. --17:39 La Lozano R.N. EKG time: (1635). EKG was performed by a tech and shown to the ED physician. --18:00 La Lozano R.N. DISPOSITION / DISCHARGE Departure time: 1730. Condition at departure: unchanged. No learning barriers present. Discharge instructions provided and reviewed with the patient and spouse. Reviewed referral to family practice for followup. Verbalized understanding. Written instructions provided. The patient left the Emergency Department against medical advice. The patient appears to be alert and oriented x4. He notified the ED staff prior to leaving the department and stated is leaving the ED due to personal reasons. Notified the ED physician of patient departure. Prior to leaving the ED, he was advised to stay for completion of treatment and return if needed. He was informed of the risks of leaving and verbalized understanding of these risks. Patient signed form prior to leaving. He left the Emergency Department ambulatory and via private vehicle. --17:56 La Lozano R.N. 17:30 12/27/16. BP: 116/72. HR: 88. RR: 18. O2 saturation: 96% on room air. Temp: 98.1 F. Pain level now: 02/05. --17:56 La Lozano R.N. Locked/Released at 12/27/2016 18:03 by La Lozano R.N.
--- NOTE | 2016-12-27 17:44 | ED ORDER SUMMARY ---
..... Patient: PETE ROBLERO OrderSheet [facility] VisitID: [id number] [place] [address] 46y, M Registration Date/Time: 12/27/2016 ORDER SHEET Weight: 122.4 kg (stated) Allergies: Dilaudid, Imitrex, Tape, Vicodin GENERAL ORDERS: Chest 2V Urgent (16:34 12/27/2016 PHutchinson DO) (Ack 16:48 [facility]) (16:58 LSullivan R.N.) Microwave Remote Sensing Scientist (Continuous) (16:34 12/27/2016 PHutchinson DO) (16:41 Khadar R.N.) Old Records (from [facility]) (16:34 12/27/2016 PHutchinson DO) (16:47 RKaruga) UA-Culture if indicated Urgent (16:34 12/27/2016 PHutchinson DO) (Ack 16:48 [facility]) (Cancelled: Patient Left17:59 LSullivan R.N.) Cardiac Panel Stat (16:34 12/27/2016 PHutchinson DO) (16:41 Khadar R.N.) BNP Urgent (16:34 12/27/2016 PHutchinson DO) (16:41 Khadar R.N.) D-Dimer Urgent (16:34 12/27/2016 PHutchinson DO) (16:41 Khadar R.N.) Amylase Urgent (16:34 12/27/2016 PHutchinson DO) (16:41 Khadar R.N.) TSH Urgent (16:34 12/27/2016 PHutchinson DO) (16:41 Khadar R.N.) Ethyl Alcohol Urgent (16:34 12/27/2016 PHutchinson DO) (16:41 Khadar R.N.) Urine Drug Screen Urgent (16:34 12/27/2016 PHutchinson DO) (Ack 16:48 [facility]) (17:58 LSullivan R.N.) (Cancelled: Patient Left17:58 LSullivan R.N.) PT with INR Urgent (16:34 12/27/2016 PHutchinson DO) (16:41 Khadar R.N.) Pulse oximeter (16:34 12/27/2016 [facility]) (16:41 Khadar R.N.) EKG - ER Stat (16:34 12/27/2016 [facility]) (16:41 Khadar R.N.) Vitals (16:34 12/27/2016 [facility]) (16:41 Khadar R.N.) MEDICATION ORDERS: Aspirin PO 325 mg (NOW) (16:34 12/27/2016 [facility]) (16:46 Khadar R.N.) Acetaminophen PO 1,000 mg (NOW) (17:24 12/27/2016 [facility]) (17:38 LSullivan R.N.) Insulin Reg Subcut 8 units (HIGH ALERT MEDICATION, NOW) (17:39 12/27/2016 LSullivan R.N. verbal order read back to [facility]) (17:39 LSullivan R.N.) IV FLUIDS: IV NS : initial bolus 1000 mL (1000 mL/hr), then 250 mL/hr for X4 (NOW) (16:34 12/27/2016 [facility]) (Ack 16:58 LSullivan R.N.) (17:29 LSullivan R.N.) Insulin Reg IV 8 units (HIGH ALERT MEDICATION, NOW) (17:21 12/27/2016 [facility]) (Cancelled: Pt is leaving 17:39 LSullivan R.N.) ORDER SHEET NOTES: [Electronically signed by Kartik Sterling DO (17:55 12/27/2016)] [Electronically signed by La Lozano R.N. (18:03 12/27/2016)] [Electronically locked/signed by La Lozano R.N. (18:03 12/27/2016)]
--- NOTE | 2016-12-27 17:44 | ED CLINICAL REPORT ---
Clinical Report - Physicians/Mid Levels [facility] [address] [place] [place] [address] 12/27/2016 16:25 Patient: PETE ROBLERO Time Seen: 16:32. Arrived- By private vehicle. Historian- patient. HISTORY OF PRESENT ILLNESS Chief Complaint: CHEST DISCOMFORT. It is described as dull and "pain" and it is described as located in the left chest area. No radiation. At its maximum, severity described as severe. When seen in the E.D., severity described as moderate. Modifying factors- worsened by movement. Relieved by rest. This started just prior to arrival and is still present. It was gradual in onset and has been waxing/waning. Onset during light activity. No nausea, vomiting, difficulty breathing or diaphoresis. Similar symptoms previously: Recent medical care: The patient was seen recently at this facility and another facility in the emergency department and hospitalized. ( 12/23/2016: Seen at [facility] ED - was release from the hospital that day and returned to the ED later in the day 12/21/16: Admitted to [facility] from the ED after syncope and chest pain - had extensive cardiac work up and monitoring; had CT head and chest 12/17/16: seen at [facility] ED for CP - diagnosed with (noncardiac) chest pain and anxiety and d/c'd home; Glucose 489 on that visit; trop T <0.10ug/L Seen last month at [facility] [place] with negative cardiac work up Seen at [facility] ED 11/21/16 with negative work up Seen at [facility] ED 11/01/16 for chest pain and neg work up Seen at [facility] ED 11/22/16 with back pain). REVIEW OF SYSTEMS No fever, chills, cough, pedal edema or calf pain. No headache, sore throat, abdominal pain, black stools or difficulty with urination. No skin rash, enlarged lymph nodes or bloody stools. The patient experienced syncope; (1 1/2 weeks ago). He has had joint pain. All systems otherwise negative, except as recorded above. PAST HISTORY See nurses notes. See nurses notes. PROBLEMS: Chest Pain. Ureterolithiasis. Hematuria. Syncope. Intervertebral Disc Disease. Neck Pain. Cholelithiasis. Abdominal Pain. Myofascial Strain. Neuropathy. Back Pain. Diarrhea. Diabetes Mellitus. Prostatitis. COPD - Chronic Obstructive Pulmonary Disease. SURGERIES: Back Surgery. Intestine surgery. Lt knee . Lt shoulder surgery. Rt hand. Medications: Atorvastatin Calcium Oral 10 mg, daily. Isosorbide Mononitrate Oral 60mg daily . Lantus Subcutaneous 100 am and HS . Metoprolol Tartrate Oral 25 mg, daily . Nitro-Bid Transdermal 0.4 PRN . Pantoprazole Sodium Oral 20 mg, daily. Percocet Oral 10/325 mg, 3x a day. Potassium Chloride Oral 20 meq, 2x a day. Albuterol Sulfate HFA Inhalation. ASA 81mg daily am . Doxazosin Mesylate Oral (Tablet 4 mg) 1 tablet, q hs. Furosemide Oral 40 mg, 1-2 day prn ankle swelling. Gabapentin Oral 1200mg, 3x a day. HumuLIN R Injection 60-80 in am, and sliding at night . Ibuprofen Oral, PRN. Imodium A-D Oral 2 mg, PRN. Insulin, humanlin. Allergies: Dilaudid. Imitrex. Tape. Vicodin. SOCIAL HISTORY Smoker- current status unknown. 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 No alcohol use. Is a local resident. FAMILY HISTORY Father with DM and [place] age 49 y/o Mother with CABG at 59 y/o Grandmother [place] at 47 y/o Grandfather - CVA. ADDITIONAL NOTES The nursing notes have been reviewed. PHYSICAL EXAM Vital Signs: 12/27/2016 16:30 BP: 128/73. HR: 87. RR: 18. O2 saturation: 97%. Pain level now: 07/08. Appearance: Alert. Oriented X3. Anxious. Patient in mild distress. Eyes: Pupils equal, round and reactive to light. Eyes normal inspection. No scleral icterus or pale conjunctivae. ENT: Pharynx normal. No pharyngeal erythema or tonsillar exudate. The mucous membranes are not dry. Neck: Normal inspection. Neck supple. CVS: Normal heart rate and rhythm. Heart sounds normal. Pulses normal. Respiratory: No respiratory distress. Breath sounds normal. (mild left lower chest wall tenderness that does not seem to reproduce his subjective complaint). Abdomen: Soft and nontender. Back: Normal external inspection. Skin: Skin warm and dry. Normal skin color. Normal skin turgor. Extremities: Extremities exhibit normal ROM. No lower extremity edema. Neuro: Oriented X 3. No motor deficit. LABS, X-RAYS, AND EKG EKG: EKG time: (16:35). Normal sinus rhythm. Rate: 85. Normal P waves. Normal ARABELLA. Normal QRS complex. Normal axis. Normal ST and T waves. T wave flattening in lead III, aVL, V1 and V2. The study has been interpreted contemporaneously by me. The EKG appears to be a good tracing. Rhythm Strip #1: Normal sinus rhythm. Regular rhythm. Narrow QRS complexes. No ectopy. Chest X-ray: No acute disease. Normal lung markings present. Normal heart size. Mediastinum normal. Great vessels normal. Soft tissues normal. No infiltrate. No fracture. No bony lesion present. Views: PA and lateral. The X-rays were interpreted contemporaneously by me. The X-rays were discussed with the radiologist (via PACS note). Laboratory Tests: CBC w Diff: (ALBA: 12/27/2016 16:35) ( MsgRcvd 12/27/2016 16:58) Final results Test Result Flag Units (Reference) WHITE BLOOD COUNT 11.0 K/uL (4.5-11.5) RED BLOOD COUNT 4.60 M/uL (4.50-5.90) HEMOGLOBIN 13.5 gm/dL (13.5-17.5) HEMATOCRIT 40.8 L % (41.0-53.0) MEAN CELL VOLUME 89 fL (80-100) MEAN CORPUSCULAR HGB 29 pg (26-34) MEAN CORPUSCULAR HGB CONC 33 g/dL (31-37) RED CELL DISTRIBUTION WIDTH 13.5 % (11.6-14.8) PLATELET COUNT 213 K/uL (150-400) NEUTROPHIL % 67.0 % (50-75) LYMPH % 25.3 % (25-40) MONO % 6.6 % (3-14) EOSINOPHIL % 0.8 % (0-4) BASOPHIL % 0.3 % (0-2) PT with INR: (ALBA: 12/27/2016 16:35) ( MsgRcvd 12/27/2016 17:17) Final results Test Result Flag Units (Reference) INR 0.9 (0.8-1.2) Low Intensity Therapy: INR 1.5-2.0 PT range 18.5-23.1Mod.Intensity Therapy: INR 2.0-3.0 PT range 23.1-31.5High Intensity Therapy: INR 2.5-3.5 PT range 27.4-35.5High Intensity Therapy 2: INR 3.0-4.0 PT range 31.5-39.3 D-DIMER QUANTITATIVE 0.47 ug/mLFEU (0.27-0.52) The primary value of this quantitative assay relates toits negative predictive value (i.e. exclusion) of pulmonaryembolism/deep vein thrombosis/DIC.Elevated levels of d-dimer may also occur with:, age, cancer, inflammation, liver disease,post-op, infection, hematoma, coronary disease, peripheralarteriopathy, bleeding disorders and thrombolytic treatment.Results should be correlated with other clinical andradiological data.Testing Methodology: Latex Immunoassay BNP: (ALBA: 12/27/2016 16:35) ( [facility] 12/27/2016 17:18) Final results Test Result Flag Units (Reference) B-TYPE NATRIURETIC PEPTIDE 22.3 pg/ml (5-100) Amylase: (ALBA: 12/27/2016 16:35) ( [facility] 12/27/2016 17:22) Final results Test Result Flag Units (Reference) AMYLASE 34 U/L (25-115) ETHYL ALCOHOL <3 L mg/dL (3-10) THYROID STIMULATING HORMONE 1.331 uIU/mL (0.34-3.74) CHEM 13 PANEL: (ALBA: 12/27/2016 16:35) ( [facility] 12/27/2016 17:21) Final results Test Result Flag Units (Reference) GLUCOSE 614 *H mg/dL (70-110) CRITICAL RESULTS CALLEDCalled to PRUDENCIO,RN,ER 12/27/16 1721Were 2 patient identifiers used? YWas the result read back? Y BUN 22 H mg/dL (7-18) CREATININE 1.4 H mg/dL (0.6-1.3) Estimated GFR 57.49 mL/min Estimated GFR- >60 mL/min Note: Persistent reduction over 3 months in eGFR<60 mL/min/1.73 m2 defines CKD. Patients with eGFR values>=60 mL/min/1.73 m2 may also have CKD if evidence ofpersistent proteinuria. Additional information may be foundat www.kidney.org. SODIUM 128 L mmol/L (136-145) POTASSIUM 3.9 mmol/L (3.5-5.1) CHLORIDE 94 L mmol/L (98-107) CARBON DIOXIDE 20 L mmol/L (21-32) CALCIUM 8.7 mg/dL (8.5-10.1) TOTAL PROTEIN 7.4 g/dL (6.4-8.2) ALBUMIN 3.3 g/dL (3.3-5.0) BILIRUBIN, TOTAL 0.3 mg/dL (0.0-1.0) ALKALINE PHOSPHATASE 106 U/L (46-116) AST (SGOT) 13 L U/L (15-37) ALT (SGPT) 23 U/L (12-78) MAGNESIUM 1.8 mg/dL (1.8-2.4) CPK 76 U/L (24-260) TROPONIN I <0.05 L ng/mL (0.00-1.5) TROPONIN REFERENCE RANGE:<0.1 NEGATIVE0.1-1.5 INDETERMINANT>1.5 POSITIVE . Pulse Oximetry: 12/27/2016 16:30 O2 saturation: 97%. (FIO2 - room air). Interpretation: normal. Note - Tests: (Echocardiogram (12/22/16): Sinus phillip Normal LV size and wall thickness; basal inferior, mid-inferior and basal inferseptal hypokinesis. Otherwise normal wall motion. EF 60-65%; Stage 1 diastolic dysfunction; No significant abnormalities; Compared to prior study 10/25/16, focal wall motion abnormalities are newly appreciated. However, technically study is much better this time vs last time, so [id number] comparison is difficult). PROGRESS AND PROCEDURES Course of Care: Normal Saline 1 liter IVPB given. ASA 325 mg PO given. Regular Insulin 8 units IVP given. Pt has had multiple visits for chest pain related issues and extensive work up including admission to [facility] about 1 week ago for chest pain - had 3 - 4 day hospitalization with cardiology evaluation (Dr. Solomon). Prior hospitalizations at [facility] revealed: Patient with negative stress test August 2016 and normal cath in May 2016. Also had echo with no valvular disease or evidence of heart failure. 17:40. Pt requesting pain medications. He has been given ASA and apap, but feels he may need stronger pain medication. He has had multiple visits with narcotic management in the past 12 month and is prescribed percocet. He will need any ongoing narcotics prescribed by one provider (pcp or pain specialist) per [facility] opiate prescribing guidelines. He just informed the RN that he wishes to leave the hospital. He is informed that his blood surgar is markedly elevated and this needs further treatment (it was also quite elevated at his recent ED evaluations). He is informed by myself that his w/u is in progress and I do not have all data back to adequately disposition him - waiting for some records from recent admission (with extensive w/u). He insists on leaving AMA - signs AMA. Patient/family counseled. Old ED records reviewed. Patient has had multiple ED visits (64 visits to [facility] ED in past 10-13 years; Many other visits to other area ED's ([facility] and [facility] Disposition: Discharged (left AMA). Condition: stable. CLINICAL IMPRESSION Atypical chest pain .12 lead EKG performed. Chronic, poorly controlled type 2 diabetes with hyperglycemia. No coma. INSTRUCTIONS Do not work for two days. Avoid stimulants (such as cigarettes, coffee, cold medicines, sinus medicines, street drugs). Drink plenty of fluids. Do not smoke. Seek medical help to quit smoking. (Please check your blood sugar at least 3 times per day and adjust your insulin accordingly Copy of Pain Care Plan given). Warnings: Further evaluation is necessary. GENERAL WARNINGS: Return or contact your physician immediately if your condition worsens or changes unexpectedly, if not improving as expected, or if other problems arise. Your Current Medications: CONTINUE TAKING THE FOLLOWING MEDICATIONS: Albuterol Sulfate HFA Inhalation. ASA 81mg daily am *. Atorvastatin Calcium Oral : 10 mg daily. Doxazosin Mesylate Oral : Tablet 4 mg, 1 tablet q hs. Furosemide Oral : 40 mg 1-2 day prn ankle swelling. Gabapentin Oral : 1200mg 3x a day. HumuLIN R Injection : 60-80 in am, and sliding at night. Ibuprofen Oral : PRN. Imodium A-D Oral : 2 mg PRN. Insulin, humanlin*. Isosorbide Mononitrate Oral : 60mg daily. Lantus Subcutaneous : 100 am and HS. Metoprolol Tartrate Oral : 25 mg daily. Nitro-Bid Transdermal : 0.4 PRN. Pantoprazole Sodium Oral : 20 mg daily. Percocet Oral : 10/325 mg 3x a day. Potassium Chloride Oral : 20 meq 2x a day. Follow-up: Follow up with your doctor tomorrow. AMA warnings: Oriented to person, place, and time. Gives appropriate answers and rational explanation of refusal of care. No indication for involuntary commitment is present, signs of psychosis, auditory hallucinations, delusional thinking or slurred speech. No tangential thinking, visual hallucinations or homicidal ideations. Speaks coherently. Abstract thinking intact. Clinical Impression: the patient has the capacity to make decisions regarding the medical care offered. Relevant issues reviewed and discussed with the patient. Acknowledges understanding of the reasons for recommendations regarding medical tests, procedures, admission to facility and transfer to other medical facility. The risks of refusing recommended care that were disclosed are and permanent mental impairment. Discharge instructions were provided. REFUSAL OF CARE STATEMENT (patient to review and sign in discharge instructions): I have read this paragraph. I understand that a doctor at this hospital wants to give me certain medical care. The doctor explained that care to me, and I understand what that care is. The doctor also explained to me what could happen to me if I leave here without having that care, and I understand what he said. I know that I am welcome to return to this hospital at any time to receive the recommended care or any other care that I may need at any time, regardless of my ability to pay for such care. Follow-up with: Francesco Cervantes MD, Family Practice, , [address] [place] [address] , [place], [address] Follow up tomorrow. (Electronically signed by Kartik Sterling DO 12/27/2016 17:55)
--- NOTE | 2016-12-27 17:44 | ED ORDER SUMMARY ---
..... Patient: PETE ROBLERO OrderSheet [facility] VisitID: [id number] [place] [address] 46y, M Registration Date/Time: 12/27/2016 ORDER SHEET Weight: 122.4 kg (stated) Allergies: Dilaudid, Imitrex, Tape, Vicodin GENERAL ORDERS: Chest 2V Urgent (16:34 12/27/2016 PHutchinson DO) (Ack 16:48 [facility]) (16:58 LSullivan R.N.) Overnight Associate (Continuous) (16:34 12/27/2016 PHutchinson DO) (16:41 Khadar R.N.) Old Records (from [facility]) (16:34 12/27/2016 PHutchinson DO) (16:47 RKaruga) UA-Culture if indicated Urgent (16:34 12/27/2016 PHutchinson DO) (Ack 16:48 [facility]) (Cancelled: Patient Left17:59 LSullivan R.N.) Cardiac Panel Stat (16:34 12/27/2016 PHutchinson DO) (16:41 Khadar R.N.) BNP Urgent (16:34 12/27/2016 PHutchinson DO) (16:41 Khadar R.N.) D-Dimer Urgent (16:34 12/27/2016 PHutchinson DO) (16:41 Khadar R.N.) Amylase Urgent (16:34 12/27/2016 PHutchinson DO) (16:41 Khadar R.N.) TSH Urgent (16:34 12/27/2016 PHutchinson DO) (16:41 Khadar R.N.) Ethyl Alcohol Urgent (16:34 12/27/2016 PHutchinson DO) (16:41 Khadar R.N.) Urine Drug Screen Urgent (16:34 12/27/2016 PHutchinson DO) (Ack 16:48 [facility]) (17:58 LSullivan R.N.) (Cancelled: Patient Left17:58 LSullivan R.N.) PT with INR Urgent (16:34 12/27/2016 PHutchinson DO) (16:41 Khadar R.N.) Pulse oximeter (16:34 12/27/2016 [facility]) (16:41 Khadar R.N.) EKG - ER Stat (16:34 12/27/2016 [facility]) (16:41 Khadar R.N.) Vitals (16:34 12/27/2016 [facility]) (16:41 Khadar R.N.) MEDICATION ORDERS: Aspirin PO 325 mg (NOW) (16:34 12/27/2016 [facility]) (16:46 Khadar R.N.) Acetaminophen PO 1,000 mg (NOW) (17:24 12/27/2016 [facility]) (17:38 LSullivan R.N.) Insulin Reg Subcut 8 units (HIGH ALERT MEDICATION, NOW) (17:39 12/27/2016 LSullivan R.N. verbal order read back to [facility]) (17:39 LSullivan R.N.) IV FLUIDS: IV NS : initial bolus 1000 mL (1000 mL/hr), then 250 mL/hr for X4 (NOW) (16:34 12/27/2016 [facility]) (Ack 16:58 LSullivan R.N.) (17:29 LSullivan R.N.) Insulin Reg IV 8 units (HIGH ALERT MEDICATION, NOW) (17:21 12/27/2016 [facility]) (Cancelled: Pt is leaving 17:39 LSullivan R.N.) ORDER SHEET NOTES: [Electronically signed by Kartik Sterling DO (17:55 12/27/2016)] [Electronically signed by La Lozano R.N. (18:03 12/27/2016)] [Electronically locked/signed by La Lozano R.N. (18:03 12/27/2016)]
--- NOTE | 2016-12-27 18:03 | ED MED RECONCILIATION SUMMARY ---
Patient: PETE ROBLERO Medication Reconciliation Report [facility] VisitID: [id number] [address] [place] [address] 46y, M Registration Date/Time: 12/27/2016 Weight: 122.4 kg Height/Length: 68 in. BMI: 41.0 ALLERGIES: Dilaudid, Imitrex, Tape, Vicodin The patient's Home Medications are listed below: CONTINUE TAKING THE FOLLOWING MEDICATIONS: Albuterol Sulfate HFA Inhalation ASA 81mg daily am Atorvastatin Calcium Oral 10 mg, daily Doxazosin Mesylate Oral (4 mg) 1 tablet, q hs Furosemide Oral 40 mg, 1-2 day prn ankle swelling Gabapentin Oral 1200mg, 3x a day HumuLIN R Injection 60-80 in am, and sliding at night Ibuprofen Oral, PRN Imodium A-D Oral 2 mg, PRN Insulin, humanlin Isosorbide Mononitrate Oral 60mg daily Lantus Subcutaneous 100 am and HS Metoprolol Tartrate Oral 25 mg, daily Nitro-Bid Transdermal 0.4 PRN Pantoprazole Sodium Oral 20 mg, daily Percocet Oral 10/325 mg, 3x a day Potassium Chloride Oral 20 meq, 2x a day The source(s) of the original Home Medication information: Not obtained. The following Medications were given to the patient in the Emergency Department: Aspirin [PO] PO 325 mg, administered: 12/27/2016 4:46:00 PM IV NS IV Fluids bolus 0, then 1000 mL/hr, administered: 12/27/2016 5:19:00 PM Acetaminophen [PO] PO 1000 mg, administered: 12/27/2016 5:38:00 PM Insulin Reg [Subcutaneous] Subcutaneous 8 unit, administered: 12/27/2016 5:39:00 PM The following Medications were prescribed to the patient: None.
--- NOTE | 2016-12-27 18:03 | ED MAR SUMMARY ---
..... Medication Administration Record [facility] [address] [place] [address] Patient: PETE ROBLERO Visit ID: [id number] 46y, M Weight: 122.4 kg Height/Length: 68 in BMI: 41 ALLERGIES: Dilaudid, Imitrex, Tape, Vicodin Given 16:46 12/27/2016 Loretta Saunders R.N. Medication Administered: ASPIRIN [PO], Dose: 325 mg Tablets PO. Medication Ordered: Aspirin PO 325 mg (NOW). Start 17:19 12/27/2016 La Lozano R.N., Stop 17:30 12/27/2016 La Lozano R.N. Medication Administered: IV NS (SALINE), Dose: IV Fluids, Rate: 1000 mL/hr, Dispensed: 1000 mL bag, Site: #1 right hand. Medication Ordered: IV NS : initial bolus 1000 mL (1000 mL/hr), then 250 mL/hr for X4 (NOW). Given 17:38 12/27/2016 La Lozano R.N. Medication Administered: ACETAMINOPHEN [PO] (APAP), Dose: 1000 mg PO. Medication Ordered: Acetaminophen PO 1,000 mg (NOW). Given 17:39 12/27/2016 La Lozano R.N. Medication Administered: INSULIN REG [SUBCUTANEOUS], Dose: 8 unit Subcutaneous. Medication Ordered: Insulin Reg Subcut 8 units (HIGH ALERT MEDICATION, NOW).
--- NOTE | 2016-12-27 18:03 | ED DISCHARGE INSTRUCTIONS ---
Patient: PETE ROBLERO General Instructions [facility] VisitID: [id number] [place] [address] 46y, M Registration Date/Time: 12/27/2016 Atypical chest pain .12 lead EKG performed. Chronic, poorly controlled type 2 diabetes with hyperglycemia. No coma. INSTRUCTIONS Do not work for two days. Avoid stimulants (such as cigarettes, coffee, cold medicines, sinus medicines, street drugs). Drink plenty of fluids. Do not smoke. Seek medical help to quit smoking. (Please check your blood sugar at least 3 times per day and adjust your insulin accordingly Copy of Pain Care Plan given). Warnings: Further evaluation is necessary. GENERAL WARNINGS: Return or contact your physician immediately if your condition worsens or changes unexpectedly, if not improving as expected, or if other problems arise. Your Current Medications: CONTINUE TAKING THE FOLLOWING MEDICATIONS: Albuterol Sulfate HFA Inhalation. ASA 81mg daily am *. Atorvastatin Calcium Oral : 10 mg daily. Doxazosin Mesylate Oral : Tablet 4 mg, 1 tablet q hs. Furosemide Oral : 40 mg 1-2 day prn ankle swelling. Gabapentin Oral : 1200mg 3x a day. HumuLIN R Injection : 60-80 in am, and sliding at night. Ibuprofen Oral : PRN. Imodium A-D Oral : 2 mg PRN. Insulin, humanlin*. Isosorbide Mononitrate Oral : 60mg daily. Lantus Subcutaneous : 100 am and HS. Metoprolol Tartrate Oral : 25 mg daily. Nitro-Bid Transdermal : 0.4 PRN. Pantoprazole Sodium Oral : 20 mg daily. Percocet Oral : 10/325 mg 3x a day. Potassium Chloride Oral : 20 meq 2x a day. Follow-up: Follow up with your doctor tomorrow. AMA warnings: Oriented to person, place, and time. Gives appropriate answers and rational explanation of refusal of care. No indication for involuntary commitment is present, signs of psychosis, auditory hallucinations, delusional thinking or slurred speech. No tangential thinking, visual hallucinations or homicidal ideations. Speaks coherently. Abstract thinking intact. Clinical Impression: the patient has the capacity to make decisions regarding the medical care offered. Relevant issues reviewed and discussed with the patient. Acknowledges understanding of the reasons for recommendations regarding medical tests, procedures, admission to facility and transfer to other medical facility. The risks of refusing recommended care that were disclosed are and permanent mental impairment. Discharge instructions were provided. REFUSAL OF CARE STATEMENT (patient to review and sign in discharge instructions): I have read this paragraph. I understand that a doctor at this hospital wants to give me certain medical care. The doctor explained that care to me, and I understand what that care is. The doctor also explained to me what could happen to me if I leave here without having that care, and I understand what he said. I know that I am welcome to return to this hospital at any time to receive the recommended care or any other care that I may need at any time, regardless of my ability to pay for such care. Follow-up with: Francesco Cervantes MD, [facility], , [address] [place] [address] , [place], [address] Follow up tomorrow. ADDITIONAL INFORMATION Chest Pain, Noncardiac Based on your visit today, the exact cause of your chest pain is not certain. Your condition does not seem serious and your pain does not appear to be coming from your heart. However, sometimes the signs of a serious problem take more time to appear. Therefore, please watch for the warning signs listed below. Home Care: Rest today and avoid strenuous activity. Take any prescribed medicine as directed. Follow Up with your doctor or this facility as instructed or if you do not start to feel better within 24 hours. Get Prompt Medical Attention if any of the following occur: A change in the type of pain: if it feels different, becomes more severe, lasts longer, or begins to spread into your shoulder, arm, neck, jaw or back Shortness of breath or increased pain with breathing Cough with dark colored sputum (phlegm) or blood Weakness, dizziness, or fainting Fever of 100.4F (38C) or higher, or as directed by your healthcare provider Swelling, pain or redness in one leg Diabetes with High Blood Sugar You have been treated for high blood sugar (hyperglycemia). This may be becauseof an infection or other illness;eating too many sweets or starches ; not taking enough insulin. Home care High blood sugar may cause symptoms that you can learn to recognize, such as these: If you feel like your blood sugar may be too high, measure it using a blood or urine test. If it is above your usual range, use the "sliding scale"rRegular insulin dose your doctor gave you to correct this. If no "sliding scale" orders were given, contact your doctor for further advice. If your blood sugar is over 300, and you can't reach your doctor, go to the hospital emergency room. Monitor and write down your blood sugars - and insulin dose, if you take insulin - atleast twice a day. Do this before breakfast and before dinner. Do this for the next 3 to 5 days. Follow-up care Follow up with your health care provderduring the next week to review your blood sugar records. You will find out if you need to adjust your dose of insulin or other medicine for blood sugar. When to seek medical care Get prompt medical attention if either of these occur: High blood sugar.Symptoms are frequent urination, feeling dizzy, thirst, headache, nausea or vomiting, abdominal pain, and drowsiness or loss of consciousness. Low blood sugar. Symptoms are fatigue, headache, shakes, excess sweating, hunger, anxiety, reduced vision, drowsiness, weakness, confusion or loss of consciousness, and seizure. How To Quit Smoking Smoking is one of the hardest habits to break. About half of all those who have ever smoked have been able to quit, and most of those (about 70%) who still smoke want to quit. Here are some of the best ways to stop smoking. Keep Trying: It takes most smokers about 8 tries before they are finally able to fully quit. So, the more often you try and fail, the better your chance of quitting the next time! So, don't give up! Go Cold [place]: Most ex-smokers quit cold turkey. Trying to cut back gradually doesn't seem to work as well, perhaps because it continues the smoking habit. Also, it is possible to fool yourself by inhaling more while smoking fewer cigarettes. This results in the same amount of nicotine in your body! Get Support: Support programs can make an important difference, especially for the heavy smoker. These groups offer lectures, methods to change your behavior and peer support. Call the free national Quitline for more information. 829-ARUP-HHR (033-965-6698). Low-cost or free programs are offered by many hospitals, local chapters of the [employer] (298-528-4741) and the [employer] (574-247-0574). Support at home is important too. Non-smokers can help by offering praise and encouragement. If the smoker fails to quit, encourage them to try again! Wpra-Qzs-Vvhwiow Medicines: For those who can't quit on their own, Nicotine Replacement Therapy (NRT) may make quitting much easier. Certain aids such as the nicotine patch, gum and lozenge are available without a prescription. However, it is best to use these under the guidance of your doctor. The skin patch provides a steady supply of nicotine to the body. Nicotine gum and lozenge gives temporary bursts of low levels of nicotine. Both methods take the edge off the craving for cigarettes. WARNING: If you feel symptoms of nicotine overdose, such as nausea, vomiting, dizziness, weakness, or fast heartbeat, stop using these and see your doctor. Prescription Medicines: After evaluating your smoking patterns and prior attempts at quitting, your doctor may offer a prescription medicine such as bupropion (Zyban, Wellbutrin), varenicline (Chantix, Champix), a niocotine inhaler or nasal spray. Each has its unique advantage and side effects which your doctor can review with you. Health Benefits Of Quitting: The benefits of quitting start right away and keep improving the longer you go without smokin minutes: blood pressure and pulse return to normal 8 hours: oxygen levels return to normal 2 days: ability to smell and taste begins to improve as damaged nerves start to regrow 2-3 weeks: circulation and lung function improves 1-9 months: decreased cough, congestion and shortness of breath; less tired 1 year: risk of heart attack decreases by half 5 years: risk of lung cancer decreases by half; risk of stroke becomes the same as a non-smoker For information about how to quit smoking, visit the following links: National [employer] [place] , Clearing the Air, Quit Smoking Today - an online booklet. http://www.smokefree.gov/pubs/clearing_the_air.pdf Smokefree.gov http://smokefree.gov/ QuitNet http://www.quitnet.com/ You have been given the following additional information: Chest Pain, Noncardiac Diabetic Hyperglycemia Smoking Cessation Do not work for two days. (Electronically signed by Kartik Sterling DO 12/27/2016 17:55)
--- NOTE | 2016-12-27 18:03 | ED MED RECONCILIATION SUMMARY ---
Patient: PETE ROBLERO Medication Reconciliation Report [facility] VisitID: [id number] [address] [place] [address] 46y, M Registration Date/Time: 12/27/2016 Weight: 122.4 kg Height/Length: 68 in. BMI: 41.0 ALLERGIES: Dilaudid, Imitrex, Tape, Vicodin The patient's Home Medications are listed below: CONTINUE TAKING THE FOLLOWING MEDICATIONS: Albuterol Sulfate HFA Inhalation ASA 81mg daily am Atorvastatin Calcium Oral 10 mg, daily Doxazosin Mesylate Oral (4 mg) 1 tablet, q hs Furosemide Oral 40 mg, 1-2 day prn ankle swelling Gabapentin Oral 1200mg, 3x a day HumuLIN R Injection 60-80 in am, and sliding at night Ibuprofen Oral, PRN Imodium A-D Oral 2 mg, PRN Insulin, humanlin Isosorbide Mononitrate Oral 60mg daily Lantus Subcutaneous 100 am and HS Metoprolol Tartrate Oral 25 mg, daily Nitro-Bid Transdermal 0.4 PRN Pantoprazole Sodium Oral 20 mg, daily Percocet Oral 10/325 mg, 3x a day Potassium Chloride Oral 20 meq, 2x a day The source(s) of the original Home Medication information: Not obtained. The following Medications were given to the patient in the Emergency Department: Aspirin [PO] PO 325 mg, administered: 12/27/2016 4:46:00 PM IV NS IV Fluids bolus 0, then 1000 mL/hr, administered: 12/27/2016 5:19:00 PM Acetaminophen [PO] PO 1000 mg, administered: 12/27/2016 5:38:00 PM Insulin Reg [Subcutaneous] Subcutaneous 8 unit, administered: 12/27/2016 5:39:00 PM The following Medications were prescribed to the patient: None.
--- NOTE | 2016-12-27 18:03 | ED MAR SUMMARY ---
..... Medication Administration Record [facility] [address] [place] [address] Patient: PETE ROBLERO Visit ID: [id number] 46y, M Weight: 122.4 kg Height/Length: 68 in BMI: 41 ALLERGIES: Dilaudid, Imitrex, Tape, Vicodin Given 16:46 12/27/2016 Loretta Saunders R.N. Medication Administered: ASPIRIN [PO], Dose: 325 mg Tablets PO. Medication Ordered: Aspirin PO 325 mg (NOW). Start 17:19 12/27/2016 La Lozano R.N., Stop 17:30 12/27/2016 La Lozano R.N. Medication Administered: IV NS (SALINE), Dose: IV Fluids, Rate: 1000 mL/hr, Dispensed: 1000 mL bag, Site: #1 right hand. Medication Ordered: IV NS : initial bolus 1000 mL (1000 mL/hr), then 250 mL/hr for X4 (NOW). Given 17:38 12/27/2016 La Lozano R.N. Medication Administered: ACETAMINOPHEN [PO] (APAP), Dose: 1000 mg PO. Medication Ordered: Acetaminophen PO 1,000 mg (NOW). Given 17:39 12/27/2016 La Lozano R.N. Medication Administered: INSULIN REG [SUBCUTANEOUS], Dose: 8 unit Subcutaneous. Medication Ordered: Insulin Reg Subcut 8 units (HIGH ALERT MEDICATION, NOW).
== END 2016-12-27 17:48 | disposition home or self-care (01) ==
LOC: ED SRH 16:25
DX: R07.89 Other chest pain (principal); E11.65 Type 2 diabetes mellitus with hyperglycemia; J44.9 Chronic obstructive pulmonary disease, unspecified; Z79.899 Other long term (current) drug therapy; Z79.4 Long term (current) use of insulin; Z79.82 Long term (current) use of aspirin; Z88.5 Allergy status to narcotic agent
CPT/HCPCS: 90100; 90616; 91320; 91556; 92010; 92530; 92610; 92720; 93140; 94060; 95059